=== PATIENT | male | born 1960 | race Caucasian/White ===

== ENCOUNTER 2016-10-23 10:23 | Inpatient (IN) | payer MEDICARE, OTHER ==
[2016-10-23] MEDS ORDERED: IPRATROPIUM-ALBUTEROL 3 ML NEB INHALATION PRN (13:55)
[2016-10-23] MEDS ORDERED: SODIUM CHLORIDE 0.9% 1,000 ML IV SCH (14:00)
--- NOTE | 2016-10-23 15:57 | HP ---
DATE OF ADMISSION: Patient is an extremely poor historian because of his schizophrenia. Patient was transferred from [facility]. Patient was admitted as an inpatient there. Patient is being treated for COPD exacerbation. Patient is still wheezing at this point of time. Patient was found to be hyponatremic. Etiology of which was not evaluated there and patient was given Lasix with minimal improvement of sodium from 113 to 117. Patient was transferred here. Patient is a poor historian. Does not give me much of the history. Patient states he is extremely short of breath and feels sick. Patient denied any cough. Chest x-ray there did not show any pneumonic process. Patient was on system steroids and inhalational treatments there. Patient did not have any significant improvement because of which I was asked to transfer the patient. Patient was transferred here and patient is wheezing on exam. Patient denied any cough. I do not have any basic lab data available although lab data from [place] was reviewed. His sodium is 117 presently. Apparently his BNP was elevated to 1100. I did get a chance to review his past medical records which showed ejection fraction of around 20 to 25%, although patient does not give me a great history of orthopnea or PND. REVIEW OF SYSTEMS: CONSTITUTIONAL: No fever, no malaise, no fatigue. HEENT: No recent visual problems or hearing problems. Denied any sore throat. CARDIOVASCULAR: As described in HPI. PULMONARY: As described HPI. GASTROINTESTINAL: No diarrhea, no nausea, no vomiting, no abdominal pain. Normoactive bowel sounds. NEUROLOGICAL: No headaches, no weakness, no numbness. HEMATOLOGICAL: Denies any bleeding or petechiae. GENITOURINARY: Denies any burning micturition, frequency, or urgency. MUSCULOSKELETAL/RHEUMATOLOGICAL: Denies any joint pain, swelling, or any muscle pain. ENDOCRINE: Denies any polyuria or polydipsia. The rest of the 14 point review of systems is negative. The patient's home medications are not verified, but looks like patient is on edoxaban, Invega, omeprazole, metoprolol, ipratropium, diltiazem, cetirizine, Lasix, arformoterol, ammonium lactate. Although these medications were not verified yet. Patient is morbidly obese and appears to have sleep apnea. CPAP machine is not available now. We will get ( ) to put him on CPAP at night. Past medical history is significant for atrial fibrillation, severe sleep apnea, congestive heart failure, COPD, hypertension, MRSA in the past, tonsillectomy. SOCIAL HISTORY: Anxiety, schizophrenia, former smoker. Patient used to be an alcoholic in the past. Did not drink over 6 months and patient lives in ( ) [facility]. FAMILY HISTORY: Unavailable and unable to obtain from the patient. PHYSICAL EXAMINATION: Temperature 98.8, pulse of 92, respiratory rate 20, blood pressure is 148/70, saturating at 94% on 50 liters of oxygen by nasal cannula. GENERAL: Morbidly obese. Alert and oriented x3. HEENT: Pupils are round and equally reacting to light. EOMI. No scleral icterus. No conjunctival pallor. Normocephalic, atraumatic. No pharyngeal erythema. No thyromegaly. CARDIOVASCULAR: S1 and S2 present. I am unable to appreciate any JVD because of his holguin and neck contour. Although I believe patient has S3. PULMONARY: Significant expiratory wheezing was appreciated. No crackles were appreciated. ABDOMEN: Soft, nontender, nondistended, normoactive bowel sounds. No palpable organomegaly. MUSCULOSKELETAL: No joint swelling or deformity. EXTREMITIES: Patient does have lower extremity edema 1 to 2+ pitting. No cyanosis or clubbing. NEUROLOGICAL: Gross neurological examination did not reveal any focal deficits. SKIN: No rashes. LABORATORY DATA: Unavailable from this hospital. Lab data from other hospital as discussed above. ASSESSMENT AND PLAN: 1. Acute respiratory failure mostly hypercapnic respiratory failure. Patient will be started on systemic steroids, inhalational treatments and will obtain a chest x-ray. 2. Possibility of congestive heart failure, chronic systolic dysfunction with acute exacerbation. Patient will be started on Lasix. 3. Hyponatremia. Appears to be hypervolemic hyponatremia for which we will start him on Lasix as mentioned above. 4. Nicotine dependence. 5. Atrial fibrillation presently rate controlled. Patient will be started on his Cardizem, metoprolol and Xarelto. 6. Schizophrenia. Patient is on paliperidone, which will be continued. 7. Patient has lower extremity wounds in the past, which resolved at this point.
[2016-10-23] MEDS ORDERED: HEPARIN SODIUM,PORCINE 5,000 UNIT/ML 1 ML VIAL SQ SCH (16:00)
[2016-10-23] MEDS: IPRATROPIUM-ALBUTEROL 3 ML NEB INHALATION SCH ×2 (16:03→21:03)
[2016-10-23] MEDS: AZITHROMYCIN 500 MG TAB PO SCH (16:08)
[2016-10-23] MEDS: methylPREDNISolone SOD SUCCI 125 MG/2 ML VIAL IV SCH ×2 (16:08→18:26)
--- NOTE | 2016-10-23 16:33 | XR ---
EXAMINATION TYPE: XR chest 2V DATE OF EXAM: 10/23/2016 3:58 PM COMPARISON: Prior chest x-ray 11 July 2014 HISTORY: Rule out pneumonia, abnormal chest x-ray TECHNIQUE: Frontal and lateral views of the chest are obtained. FINDINGS: There is no focal air space opacity, pleural effusion, or pneumothorax seen. Lung volumes are prominent. The cardiac silhouette size is enlarged. There are overlying cardiac leads. Intersti tium is increased. There is some improvement in the blunting the posterior costophrenic angles. The o sseous structures are intact. IMPRESSION: Findings suggest pulmonary venous hypertension and interstitial edema in a patient with pre-existing COPD. Correlate for congestive heart failure. Follow-up recommended.
[2016-10-23 16:59] LABS: Glucose,Whole Blood 120 mg/dL (75-99)
--- NOTE | 2016-10-23 17:00 | P.CRDCN ---
History of Present Illness Consult date: 10/23/16 Chief complaint: Shortness of breath History of present illness: This is a pleasant 55-year-old gentleman with a past medical history significant for cardiomyopathy with an ejection fraction of 20% based on echocardiogram was performed in June 2016, chronic atrial fibrillation, hypertension, and COPD, was brought from [facility] to [facility] for further evaluation and management. The patient is a poor historian. He lives in an extended care facility. He had some change in mental status lately and he was found to be more dyspneic. He was brought to the emergency room where he was found to be hypoxic. Currently the patient is requiring 6 L of nasal cannula to keep his oxygen above 90%. The chest x-ray showed findings consistent was congestive heart failure exacerbation. I don't have any PND on him at this point. On physical examination he had bilateral crackles associated with bilateral lower extremities edema. The patient was started on Lasix IV and we'll continue that. He is on Cardizem for heart rate control and I am going to stop that and start the patient on metoprolol. He is in A. fib with controlled heart rate. I will repeat the echocardiogram. Past Medical History Past Medical History: Atrial Fibrillation, Chest Pain / Angina, Heart Failure, COPD, Hypertension, Osteoarthritis (OA) Additional Past Medical History / Comment(s): noncompliant with medications. Schizophrenia all information gatherd from medical records from [facility] records and the patient. History of Any Multi-Drug Resistant Organisms: MRSA Date of last positivie culture/infection: 07/07/14 MDRO Source:: LT LEG Past Surgical History: Tonsillectomy Past Anesthesia/Blood Transfusion Reactions: No Reported Reaction Past Psychological History: Anxiety, Schizophrenia Smoking Status: Former smoker Past Alcohol Use History: Occasional Additional Past Alcohol Use History / Comment(s): He has used alcohol before last drink was over 6 months ago Patient is currently residing and [facility]. information given from patient. Past Drug Use History: None Reported - Past Family History Father Family Medical History: No Reported History Medications and Allergies Home Medications Medication Instructions Recorded Confirmed Type Metoprolol Succinate [Toprol XL] 100 mg PO DAILY 01/15/15 10/23/16 History Paliperidone [Invega] 9 mg PO DAILY 01/15/15 10/23/16 History Rivaroxaban [Xarelto] 20 mg PO DAILY 01/15/15 10/23/16 History Ipratropium/Albuterol Sulfate 1 puff INHALATION RT-QID 01/29/15 10/23/16 History [Combivent Respimat Inhaler] Arformoterol Tartrate [Brovana] 15 mcg INHALATION RT-BID 04/02/15 10/23/16 History Budesonide [Pulmicort] 0.5 mg INHALATION RT-BID 04/02/15 10/23/16 History Albuterol Inhaler [Ventolin Hfa 2 puff INHALATION RT-Q4H PRN 10/23/16 10/23/16 History Inhaler] Ammonium Lactate Cream [Lac-Hydrin 1 applic TOPICAL BID 10/23/16 10/23/16 History 12% Cream] Cetirizine HCl [Zyrtec] 10 mg PO DAILY 10/23/16 10/23/16 History Diltiazem HCl 60 mg PO QID 10/23/16 10/23/16 History Fluticasone Nasal [place] [Flonase 1 - 2 spray EA NOSTRIL DAILY PRN 10/23/1610/23 History Nasal [place]] Omeprazole [PriLOSEC] 40 mg PO HS 10/23/16 10/23/16 History Allergies Allergy/AdvReac Type Severity Reaction Status Date / Time benztropine mesylate Allergy Rash/Hives Verified 10/23/16 14:31 [From [facility]] peanut oil Allergy Unknown Verified 10/23/16 14:31 laundry detergent Allergy Mild Rash/Hives Uncoded 06/04/15 11:53 popcorn Allergy Mild Rash/Hives Uncoded 06/04/15 11:53 laundry soap Allergy Rash/Hives Uncoded 06/04/15 11:53 Physical Exam Vitals: Vital Signs Temp Pulse Pulse Resp BP Pulse Ox 10/23/16 16:14 90 10/23/16 16:05 88 10/23/16 13:32 98.8 F 92 20 148/78 94 L Intake and Output 10/23/16 10/23/16 10/23/16 06:59 14:59 22:59 Other: Weight 117.027 kg Patient Weight 10/24/16 06:59 Weight 117.027 kg - Constitutional General appearance: mild distress - Respiratory Respiratory: bilateral: rales - Cardiovascular Rhythm: irregularly irregular Heart sounds: normal: S1, S2 Results Current Medications Generic Name Dose Route Start Last Admin Trade Name Brandenq PRN Reason Stop Dose Admin Albuterol/Ipratropium 3 ml 10/23/16 13:55 Duoneb 0.5 Mg-3 Mg/3 Ml Soln INHALATION RT-Q4H PRN Shortness Of Breath Or Wheezing Albuterol/Ipratropium 3 ml 10/23/16 16:00 10/23/16 16:03 Duoneb 0.5 Mg-3 Mg/3 Ml Soln INHALATION 3 ml RT-QID MARJORIE Administration Azithromycin 500 mg 10/23/16 14:00 10/23/16 16:08 Zithromax PO 500 mg DAILY MARJORIE Administration Budesonide 0.5 mg 10/23/16 20:00 Pulmicort INHALATION RT-BID MARJORIE Diltiazem HCl 60 mg 10/23/16 18:00 Cardizem Oral PO QID MARJORIE Formoterol Fumarate 20 mcg 10/23/16 20:00 Perforomist INHALATION RT-BID MARJORIE Furosemide 40 mg 10/23/16 21:00 Lasix IV Q12HR MARJORIE Insulin Human Lispro 0 unit 10/23/16 17:30 Humalog SQ ACHS MARJORIE Protocol Methylprednisolone Sodium Succinate 60 mg 10/23/16 14:00 10/23/16 16:08 Solu-Medrol IV 60 mg Q6HR MARJORIE Administration Metoprolol Succinate 100 mg 10/24/16 09:00 Toprol Xl PO DAILY MARJORIE Paliperidone 9 mg 10/24/16 09:00 Invega PO DAILY MARJORIE Pantoprazole Sodium 40 mg 10/23/16 21:00 Protonix PO HS MARJORIE Rivaroxaban 20 mg 10/24/16 09:00 Xarelto PO DAILY [facility] Intake and Output 10/23/16 10/23/16 10/23/16 06:59 14:59 22:59 Other: Weight 117.027 kg Patient Weight 10/24/16 06:59 Weight 117.027 kg Assessment and Plan Plan: Assessment Congestive heart failure exacerbation secondary to systolic dysfunction Atrial fibrillation was controlled heart rate Severe cardiomyopathy COPD Obesity Plan The patient was started on Lasix IV DC the Cardizem and start the patient on metoprolol Obtain an echocardiogram was Doppler Follow-up with the patient
[2016-10-23] MEDS: INSULIN LISPRO (humaLOG) 300 UNIT/3 ML VIAL SQ SCH ×2 (17:16→22:22)
[2016-10-23] MEDS ORDERED: DILTIAZEM ORAL 60 MG TAB PO SCH (18:00)
[2016-10-23] MEDS: BUDESONIDE 0.5 MG/2 ML NEBU INHALATION SCH (21:03)
[2016-10-23] MEDS: FORMOTEROL FUMARATE 20 MCG/2 ML NEBU INHALATION SCH (21:03)
[2016-10-23 22:02] LABS: Glucose,Whole Blood 151 mg/dL (75-99)
[2016-10-23] MEDS: FUROSEMIDE 10 MG/ML 4 ML VIAL IV SCH (22:22)
[2016-10-23] MEDS: PANTOPRAZOLE 40 MG TABLET PO SCH (22:23)
[2016-10-23 23:38] LABS: Creatinine,Urine Random 40.7 mg/dL
[2016-10-24] MEDS: methylPREDNISolone SOD SUCCI 125 MG/2 ML VIAL IV SCH ×5 (03:08→23:05)
[2016-10-24 05:58] LABS: Glucose,Whole Blood 152 mg/dL (75-99)
[2016-10-24] MEDS: INSULIN LISPRO (humaLOG) 300 UNIT/3 ML VIAL SQ SCH ×4 (06:35→20:47)
[2016-10-24 06:43] LABS: Basophils % (A) 0 %; CH 28.7; Eosinophils % (A) 0 %; HCT 53.9 % (39.0-53.0); HDW 2.91; Hypochromasia Slight; Luc # (Auto) 0.28; Luc % (Auto) 2; Lymphocytes # (A) 0.3 k/uL (1.0-4.8); Lymphocytes % (A) 2 %; MCH 28.4 pg (25.0-35.0); MCHC 31.6 g/dL (31.0-37.0); MCV 90.1 fL (80.0-100.0); Mean Platelet Volume 7.7; Monocytes # (A) 1.2 k/uL (0-1.0); Monocytes % (A) 8 %; Neutrophils # (A) 13.3 k/uL (1.3-7.7); Neutrophils % (A) 88 %; RBC 5.98 m/uL (4.30-5.90); RDW 14.5 % (11.5-15.5); WBC 15.1 k/uL (3.8-10.6); WBC (Perox) 15.19
[2016-10-24 06:56] LABS: ALT 36 U/L (21-72); AST 23 U/L (17-59); Alkaline Phosphatase 86 U/L (38-126); Blood Urea Nitrogen 28 mg/dL (9-20); Calcium 8.4 mg/dL (8.4-10.2); Glucose 108 mg/dL (74-99); Non-African American GFR(MDRD) >60 (>60 ml/min/1.73 sqM); Potassium 5.3 mmol/L (3.5-5.1); Sodium 122 mmol/L (137-145); Total Bilirubin 0.7 mg/dL (0.2-1.3); Total Protein 6.6 g/dL (6.3-8.2)
[2016-10-24 07:02] LABS: Anion Gap 5 mmol/L
[2016-10-24 07:16] LABS: Carbon Dioxide 45 mmol/L (22-30); Chloride 72 mmol/L (98-107)
[2016-10-24] MEDS: AZITHROMYCIN 500 MG TAB PO SCH (08:12)
[2016-10-24] MEDS: RIVAROXABAN 10 MG TAB PO SCH (08:12)
[2016-10-24] MEDS: PALIPERIDONE 3 MG TAB.ER.24 PO SCH (08:12)
[2016-10-24] MEDS: FUROSEMIDE 10 MG/ML 4 ML VIAL IV SCH ×2 (08:12→20:46)
[2016-10-24] MEDS: METOPROLOL SUCCINATE (ER) 100 MG TAB.ER.24H PO SCH (08:12)
[2016-10-24] MEDS: FORMOTEROL FUMARATE 20 MCG/2 ML NEBU INHALATION SCH ×2 (08:13→19:31)
[2016-10-24] MEDS: BUDESONIDE 0.5 MG/2 ML NEBU INHALATION SCH ×2 (08:13→19:31)
[2016-10-24] MEDS: IPRATROPIUM-ALBUTEROL 3 ML NEB INHALATION SCH ×4 (08:13→19:31)
[2016-10-24 10:34] LABS: Hemoglobin A1C 6.1 % (4.2-6.1)
[2016-10-24 11:43] LABS: Glucose,Whole Blood 228 mg/dL (75-99)
[2016-10-24 13:06] LABS: Blood Urea Nitrogen 29 mg/dL (9-20); Calcium 8.4 mg/dL (8.4-10.2); Glucose 145 mg/dL (74-99); Non-African American GFR(MDRD) >60 (>60 ml/min/1.73 sqM); Phosphorous 4.4 mg/dL (2.5-4.5); Potassium 5.3 mmol/L (3.5-5.1); Sodium 121 mmol/L (137-145)
[2016-10-24 13:14] LABS: Anion Gap 9 mmol/L
[2016-10-24 13:16] LABS: Carbon Dioxide 41 mmol/L (22-30); Chloride 71 mmol/L (98-107)
--- NOTE | 2016-10-24 14:40 | P.PN ---
Subjective Principal diagnosis: This is a pleasant 55-year-old gentleman with a past medical history significant for cardiomyopathy with an ejection fraction of 20% based on echocardiogram was performed in June 2016, chronic atrial fibrillation, hypertension, and COPD, was brought from [facility] to [facility] for further evaluation and management.The patient is a poor historian. He lives in an extended care facility. He had some change in mental status lately and he was found to be more dyspneic. He was brought to the emergency room where he was found to be hypoxic. Currently the patient is requiring 3 L of nasal cannula to keep his oxygen above 98%. The chest x-ray showed findings consistent was congestive heart failure exacerbation. The patient was started on Lasix IV and we'll continue that. He is on Cardizem for heart rate control and I am going to stop that and start the patient on metoprolol. He is in A. fib with controlled heart rate. Echocardiogram with Doppler study remains pending. Blood pressure 136/80 with a heart rate in the 80s. Sodium today 121 , potassium 5.3, chloride 71, CO2 41, BUN 29, creatinine 0.8. Continues to be on IV Lasix, diuresing well. Objective - Vital Signs Vital signs: Vital Signs Temp 97.0 F L 10/24/16 12:00 Pulse 103 H 10/24/16 12:00 Resp 18 10/24/16 12:00 BP 136/79 10/24/16 12:00 Pulse Ox 99 10/24/16 12:00 Intake & Output 10/23/16 10/24/16 10/24/16 18:59 06:59 18:59 Intake Total 580 380 898 Output Total 1200 1500 Balance 580 -820 -602 Weight 117.027 kg 118 kg Intake: IV 380 300 0.9 @20mls/hr 130 Sodium Chloride 0.9% 1, 250 300 000 ml @ 100 mls/hr IV . Q10H MARJORIE Rx#:[id number] Intake, IV Titration 100 Amount Sodium Chloride 0.9% 1, 100 000 ml @ 100 mls/hr IV . Q10H MARJORIE Rx#:[id number] Oral 480 598 Output: Urine 1200 1500 Other: Voiding Method Urinal Urinal # Voids 2 - Exam PHYSICAL EXAMINATION: HEENT: Head is atraumatic, normocephalic. Pupils equal, round. Neck is supple. There is no elevated jugular venous pressure. HEART EXAMINATION: S1 and S2 irregularly irregular CHEST EXAMINATION: On's reveal crackles to bilateral bases. ABDOMEN: Soft, nontender. Bowel sounds are heard. No organomegaly noted. EXTREMITIES: 2+ peripheral pulses with no evidence of peripheral edema and no calf tenderness noted. NEUROLOGIC patient is awake, alert and oriented -3. . - Labs CBC & Chem 7: 10/24/16 05:57 10/24/16 12:27 Labs: Abnormal Lab Results - Last 24 Hours (Table) 10/23/16 10/23/16 10/24/16 Range/Units 16:36 21:42 05:56 WBC (3.8-10.6) k/uL RBC (4.30-5.90) m/uL Hct (39.0-53.0) % Plt Count (150-450) k/uL Neutrophils # (1.3-7.7) k/uL Lymphocytes # (1.0-4.8) k/uL Monocytes # (0-1.0) k/uL Sodium (137-145) mmol/L Potassium (3.5-5.1) mmol/L Chloride (98-107) mmol/L Carbon Dioxide (22-30) mmol/L BUN (9-20) mg/dL Glucose (74-99) mg/dL POC Glucose (mg/dL) 120 H 151 H 152 H (75-99) mg/dL Osmolality (280-301) mosm/kg 10/24/16 10/24/16 10/24/16 Range/Units 05:57 05:57 11:41 WBC 15.1 H (3.8-10.6) k/uL RBC 5.98 H (4.30-5.90) m/uL Hct 53.9 H (39.0-53.0) % Plt Count 125 L (150-450) k/uL Neutrophils # 13.3 H (1.3-7.7) k/uL Lymphocytes # 0.3 L (1.0-4.8) k/uL Monocytes # 1.2 H (0-1.0) k/uL Sodium 122 L (137-145) mmol/L Potassium 5.3 H (3.5-5.1) mmol/L Chloride 72 L* (98-107) mmol/L Carbon Dioxide 45 H* (22-30) mmol/L BUN 28 H (9-20) mg/dL Glucose 108 H (74-99) mg/dL POC Glucose (mg/dL) 228 H (75-99) mg/dL Osmolality 260 L (280-301) mosm/kg 10/24/16 Range/Units 12:27 WBC (3.8-10.6) k/uL RBC (4.30-5.90) m/uL Hct (39.0-53.0) % Plt Count (150-450) k/uL Neutrophils # (1.3-7.7) k/uL Lymphocytes # (1.0-4.8) k/uL Monocytes # (0-1.0) k/uL Sodium 121 L (137-145) mmol/L Potassium 5.3 H (3.5-5.1) mmol/L Chloride 71 L* (98-107) mmol/L Carbon Dioxide 41 H* (22-30) mmol/L BUN 29 H (9-20) mg/dL Glucose 145 H (74-99) mg/dL POC Glucose (mg/dL) (75-99) mg/dL Osmolality (280-301) mosm/kg Assessment and Plan (1) Systolic CHF, acute on chronic Status: Acute (2) Chronic a-fib Status: Acute (3) Schizo-affective schizophrenia Status: Acute (4) Chronic a-fib Status: Acute (5) High risk for readmission Status: Acute (6) Smoking Status: Acute Plan: From Cardiology's perspective, we'll recommend to continue current dose of IV Lasix. Continue Xarelto for anticoagulation. DNP note has been reviewed, I agree with a documented findings and plan of care. Patient was seen and examined.
--- NOTE | 2016-10-24 16:07 | P.PN ---
Subjective Date of service 10/24/2016. Progress note being dictated for Dr. Dumas. Interval history: This a 55-year-old gentleman admitted with acute respiratory failure, CHF, hypervolemic hyponatremia and multiple other medical issues. Diuresing well on IV Lasix with 24-hour I&O reflecting a negative fluid balance.Sodium 121, potassium 5.3. Telemetry atrial fibrillation with heart rates in the 110s to 120s,, last night up to 150s. Cardizem changed to metoprolol tartrate as per cardiology. Echo pending. Denies chest pain, palpitations or increased shortness of breath. Maintaining O2 sats of 99% on 3 L nasal cannula which can be titrated down. Objective - Vital Signs Vital signs: Vital Signs Temp 97.2 F L 10/24/16 04:00 Pulse 84 10/24/16 11:47 Resp 22 10/24/16 04:00 BP 121/73 10/24/16 04:00 Pulse Ox 94 L 10/24/16 04:00 Intake & Output 10/23/16 10/24/16 10/24/16 18:59 06:59 18:59 Intake Total 580 380 118 Output Total 1200 Balance 580 -820 118 Weight 117.027 kg 118 kg Intake: IV 380 0.9 @20mls/hr 130 Sodium Chloride 0.9% 1, 250 000 ml @ 100 mls/hr IV . Q10H MARJORIE Rx#:[id number] Intake, IV Titration 100 Amount Sodium Chloride 0.9% 1, 100 000 ml @ 100 mls/hr IV . Q10H MARJORIE Rx#:[id number] Oral 480 118 Output: Urine 1200 Other: Voiding Method Urinal # Voids 2 - Exam PHYSICAL EXAM: VITAL SIGNS: As above GENERAL: [Sitting up in bed, no acute distress] HEENT: [Pupils equal conjunctiva normal.] NECK: [Supple, no JVD] RESPIRATORY EFFORT:[Normal] LUNGS: [Diminished, basilar crackles] CARDIOVASCULAR[irregular, mildly tachycardic, no murmurs, rubs, gallops, no edema] GI: [Abdomen soft, nontender, positive bowel sounds.] PSYCH: [Alert and oriented -3, mood and affect normal.] NEURO: [No focal deficit] - Labs CBC & Chem 7: 10/24/16 05:57 10/24/16 12:27 Labs: Abnormal Lab Results - Last 24 Hours (Table) 10/23/16 10/23/16 10/24/16 Range/Units 16:36 21:42 05:56 WBC (3.8-10.6) k/uL RBC (4.30-5.90) m/uL Hct (39.0-53.0) % Plt Count (150-450) k/uL Neutrophils # (1.3-7.7) k/uL Lymphocytes # (1.0-4.8) k/uL Monocytes # (0-1.0) k/uL Sodium (137-145) mmol/L Potassium (3.5-5.1) mmol/L Chloride (98-107) mmol/L Carbon Dioxide (22-30) mmol/L BUN (9-20) mg/dL Glucose (74-99) mg/dL POC Glucose (mg/dL) 120 H 151 H 152 H (75-99) mg/dL Osmolality (280-301) mosm/kg 10/24/16 10/24/16 10/24/16 Range/Units 05:57 05:57 11:41 WBC 15.1 H (3.8-10.6) k/uL RBC 5.98 H (4.30-5.90) m/uL Hct 53.9 H (39.0-53.0) % Plt Count 125 L (150-450) k/uL Neutrophils # 13.3 H (1.3-7.7) k/uL Lymphocytes # 0.3 L (1.0-4.8) k/uL Monocytes # 1.2 H (0-1.0) k/uL Sodium 122 L (137-145) mmol/L Potassium 5.3 H (3.5-5.1) mmol/L Chloride 72 L* (98-107) mmol/L Carbon Dioxide 45 H* (22-30) mmol/L BUN 28 H (9-20) mg/dL Glucose 108 H (74-99) mg/dL POC Glucose (mg/dL) 228 H (75-99) mg/dL Osmolality 260 L (280-301) mosm/kg Assessment and Plan Plan: 1. [Acute hypercapnic respiratory failure,]. 2. [Acute CHF, systolic exacerbation. 3. [Hypovolemic hyponatremia]. 4. [Nicotine dependence]. 5. [Chronic Atrial fibrillation, anticoagulated on Xarelto]. 6. [Schizophrenia]. Plan: Continue on current medication regime , nebulized bronchodilators , monitoring and symptomatic treatment. Continue on IV Lasix, beta odalis. Anticoagulated on Xarelto. Follow closely with cardiology. Smoking cessation readdressed. Maintain fluid restrictions with diet modified to include low potassium. Close monitoring of electrolytes with repeat labs ordered. Pulmonary consult in place with recommendations pending. Prognosis guarded. The impression and plan of care has been dictated as directed. : I performed a H&P examination of this patient and discussed the same with the dictator. I agree with the dictator's note. Any additional findings/opinions/ etc. will be noted.
[2016-10-24 17:16] LABS: Glucose,Whole Blood 126 mg/dL (75-99)
[2016-10-24 20:31] LABS: Glucose,Whole Blood 178 mg/dL (75-99)
[2016-10-24] MEDS: PANTOPRAZOLE 40 MG TABLET PO SCH (20:46)
--- NOTE | 2016-10-24 20:53 | CONS ---
DATE OF CONSULTATION: This is a 55-year-old gentleman who apparently was transferred down from [facility]. He came in with COPD exacerbation and possible CHF. The patient was also found to have hyponatremia. The hyponatremia may in fact be hypervolemic hyponatremia from heart failure. His chest x-ray does show evidence of heart failure and fluid overload. In this condition, there is an increase in both water and sodium, but water increase exceeds sodium increase. Anyway, the patient was given diuretics, I believe, and is doing a bit better. He has a history of hypoxemic respiratory failure, underlying CHF with systolic dysfunction, hyponatremia, nicotine dependence, possible COPD, atrial fibrillation and schizophrenia. The patient was sleeping when I initially came into the room. He was getting oxygen therapy. He was nearly flat on his back. His head was raised just a bit. He appeared to be not in any distress. He was snoring loudly, and occasionally there was minimal air movement and probably he does have a component as well of sleep apnea syndrome. His home medications appear to be: 1. Omeprazole. 2. Invega. 3. Metoprolol. 4. Ipratropium. 5. Diltiazem. 6. Zyrtec. 7. Lasix. 8. Formoterol. 9. Ammonium lactate. 10. Possibly factor Xa inhibitor. He also appears to have a history of sleep apnea. He apparently did have a CPAP device. Medical history includes: 1. Atrial fibrillation. 2. Sleep apnea. 3. CHF. 4. COPD. 5. Hypertension. 6. Previous MRSA infection. 7. Tonsillectomy. Social history is positive for chronic alcohol abuse. He is a current smoker; has not smoked for some time. No illicit drug use. Family history is unremarkable. The rest of the history is difficult to obtain. Review of systems is unreliable at best. It appears that his primary complaint was shortness of breath and maybe some mental status changes; again, not really a good historian. No chest pain, chest discomfort. No cough. Not coughing up any phlegm. No fever. No chills. No nausea, vomiting or diarrhea. Current vital signs include temperature 97, heart rate 98, respiratory rate 16, blood pressure 136/79, mean 98. Two-liter saturation 99%. Appears in no acute distress. As I mentioned, when I first came into the room he was nearly flat on his back sleeping, snoring loudly but not in any distress. HEENT examination is grossly unremarkable. Mucous membranes are moist. NECK: Supple. Full range of motion. No neck vein distention. No adenopathy or thyromegaly. Cardiovascular examination reveals regular rhythm and rate. Heart rate near 100. It is pretty regular. S1, S2 normal. Soft systolic murmur. Lungs reveal some bibasilar crackles. No wheezes. No rhonchi. Breath sounds are equal but diminished. ABDOMEN: Soft. Bowel sounds are heard. No masses. EXTREMITIES: Intact. Some minimal edema. Some chronic venostasis changes and hyperpigmentation. Skin without rash. Neurological examination is nonfocal. Lab data includes white count 15.1, hemoglobin 17, hematocrit 53.9, platelet count 125,000. Sodium 122, potassium 5.3, chloride 72, CO2 45. BUN and creatinine were 20 and 0.75. The rest of the labs look okay. The patient's serum osmolality is low at 260. Chest x-ray reveals diffuse heart failure changes. Medications are reviewed. He is on: 1. Zithromax. 2. Pulmicort. 3. Formoterol. 4. Lasix. 5. DuoNeb. 6. Metoprolol. 7. Invega. 8. Protonix. 9. Xarelto. 10. Solu-Medrol. It really does not sound like he needs the Zithromax, but it is okay for now. Everything else seems appropriate. ASSESSMENT: 1. Shortness of breath, likely secondary to mostly heart failure but also a component of chronic obstructive pulmonary disease. 2. No obvious infection. 3. Hypervolemic hyponatremia secondary to congestive heart failure. 4. Morbid obesity. 5. History of atrial fibrillation. 6. History of sleep apnea. 7. History of hypertension. PLAN: Will continue to follow. Medications are appropriate. No changes are made.
[2016-10-25 05:48] LABS: Glucose,Whole Blood 122 mg/dL (75-99)
[2016-10-25] MEDS: INSULIN LISPRO (humaLOG) 300 UNIT/3 ML VIAL SQ SCH ×4 (06:07→20:50)
[2016-10-25] MEDS: methylPREDNISolone SOD SUCCI 125 MG/2 ML VIAL IV SCH ×3 (06:10→17:46)
[2016-10-25 06:40] LABS: CH 28.8; CHCM 31.8; HCT 54.2 % (39.0-53.0); HDW 2.76; HGB 17.1 gm/dL (13.0-17.5); Hypochromasia Slight; MCH 28.5 pg (25.0-35.0); MCHC 31.5 g/dL (31.0-37.0); MCV 90.5 fL (80.0-100.0); RBC 5.99 m/uL (4.30-5.90); RDW 14.7 % (11.5-15.5); WBC 11.3 k/uL (3.8-10.6)
[2016-10-25 07:05] LABS: Blood Urea Nitrogen 30 mg/dL (9-20); Calcium 8.1 mg/dL (8.4-10.2); Glucose 121 mg/dL (74-99); Non-African American GFR(MDRD) >60 (>60 ml/min/1.73 sqM); Potassium 4.4 mmol/L (3.5-5.1); Sodium 124 mmol/L (137-145)
[2016-10-25 07:12] LABS: Chloride 71 mmol/L (98-107)
[2016-10-25 07:14] LABS: Carbon Dioxide 48 mmol/L (22-30)
[2016-10-25 07:15] LABS: Anion Gap 5 mmol/L
[2016-10-25] MEDS: PALIPERIDONE 3 MG TAB.ER.24 PO SCH (08:38)
[2016-10-25] MEDS: FUROSEMIDE 10 MG/ML 4 ML VIAL IV SCH ×2 (08:38→20:49)
[2016-10-25] MEDS: AZITHROMYCIN 500 MG TAB PO SCH (08:38)
[2016-10-25] MEDS: METOPROLOL SUCCINATE (ER) 100 MG TAB.ER.24H PO SCH (08:38)
[2016-10-25] MEDS: RIVAROXABAN 10 MG TAB PO SCH (08:39)
[2016-10-25] MEDS: FORMOTEROL FUMARATE 20 MCG/2 ML NEBU INHALATION SCH ×2 (08:49→20:11)
[2016-10-25] MEDS: IPRATROPIUM-ALBUTEROL 3 ML NEB INHALATION SCH ×4 (08:49→20:11)
[2016-10-25] MEDS: BUDESONIDE 0.5 MG/2 ML NEBU INHALATION SCH ×2 (08:49→20:11)
[2016-10-25 12:03] LABS: Glucose,Whole Blood 126 mg/dL (75-99)
--- NOTE | 2016-10-25 13:13 | P.PN ---
Subjective Principal diagnosis: Acute exacerbation of systolic congestive heart failure This is a pleasant 55-year-old gentleman with a known history of systolic congestive heart failure, acute hypoxic respiratory failure, chronic nicotine dependence, atrial fibrillation, schizophrenia. He was admitted here on 2016 as a transfer from [facility] for an acute exacerbation of COPD as well as an acute exacerbation of congestive heart failure. He is seen again today in follow-up on the selective care unit. He is awake and alert in no acute distress. His breathing is easier today as compared to yesterday. Somewhat of a poor historian however. Echocardiogram showed significant cardiomyopathy with an ejection fraction of 20% he's been diuresed with Lasix 40 mg IV every 12 hours. He remains in a negative balance. Does continue to require 14 L of high flow nasal cannula to maintain O2 saturations in the 90s. He is currently afebrile. Objective - Vital Signs Vital signs: Vital Signs Temp 97.5 F L 10/25/16 08:00 Pulse 68 10/25/16 12:03 Resp 18 10/25/16 08:00 BP 139/75 10/25/16 08:00 Pulse Ox 99 10/25/16 08:50 Intake & Output 10/24/16 10/25/16 10/25/16 18:59 06:59 18:59 Intake Total 898 150 120 Output Total 1500 2200 1200 Balance -602 -1395 Weight 114 kg Intake: IV 300 150 0.9 @20mls/hr 150 Sodium Chloride 0.9% 1, 300 000 ml @ 100 mls/hr IV . Q10H [facility] Rx#:[id number] Oral 598 120 Output: Urine 1500 2200 1200 Other: Voiding Method Urinal Urinal - Exam GENERAL EXAM: Alert, comfortable in no apparent distress. HEAD: Normocephalic. EYES: Normal reaction of pupils, equal size. NOSE: Clear with pink turbinates. THROAT: No erythema or exudates. NECK: No masses, no JVD. CHEST: No chest wall deformity. LUNGS: Equal air entry with bilateral posterior bases. Diminished. CVS: S1 and S2 normal with an audible systolic murmur, irregular rhythm. ABDOMEN: No hepatosplenomegaly, normal bowel sounds, no guarding or rigidity. Extremities: There is 1-2+ lower extremity peripheral edema. No clubbing, no cyanosis. Peripheral pulses are intact. - Labs CBC & Chem 7: 10/25/16 05:46 10/25/16 05:46 Labs: Abnormal Lab Results - Last 24 Hours (Table) 10/24/16 10/24/16 10/24/16 Range/Units 12:27 17:07 20:29 WBC (3.8-10.6) k/uL RBC (4.30-5.90) m/uL Hct (39.0-53.0) % Plt Count (150-450) k/uL Sodium 121 L (137-145) mmol/L Potassium 5.3 H (3.5-5.1) mmol/L Chloride 71 L* (98-107) mmol/L Carbon Dioxide 41 H* (22-30) mmol/L BUN 29 H (9-20) mg/dL Glucose 145 H (74-99) mg/dL POC Glucose (mg/dL) 126 H 178 H (75-99) mg/dL Calcium (8.4-10.2) mg/dL 10/25/16 10/25/16 10/25/16 Range/Units 05:46 05:46 05:46 WBC 11.3 H (3.8-10.6) k/uL RBC 5.99 H (4.30-5.90) m/uL Hct 54.2 H (39.0-53.0) % Plt Count 111 L (150-450) k/uL Sodium 124 L (137-145) mmol/L Potassium (3.5-5.1) mmol/L Chloride 71 L* (98-107) mmol/L Carbon Dioxide 48 H* (22-30) mmol/L BUN 30 H (9-20) mg/dL Glucose 121 H (74-99) mg/dL POC Glucose (mg/dL) 122 H (75-99) mg/dL Calcium 8.1 L (8.4-10.2) mg/dL 10/25/16 Range/Units 11:46 WBC (3.8-10.6) k/uL RBC (4.30-5.90) m/uL Hct (39.0-53.0) % Plt Count (150-450) k/uL Sodium (137-145) mmol/L Potassium (3.5-5.1) mmol/L Chloride (98-107) mmol/L Carbon Dioxide (22-30) mmol/L BUN (9-20) mg/dL Glucose (74-99) mg/dL POC Glucose (mg/dL) 126 H (75-99) mg/dL Calcium (8.4-10.2) mg/dL Assessment and Plan Plan: Impression: #1 Dyspnea, multifactorial in a patient found to have acute on chronic systolic congestive heart failure and acute on chronic exacerbation of chronic obstructive pulmonary disease. No clear evidence of pneumonia. #2 Severe cardiomyopathy with estimated ejection fraction 20%. #3 Chronic atrial fibrillation. Currently coagulated with Xarelto. #4 History of obstructive sleep apnea. #5 Hypertension. Plan: The patient was seen and evaluated by Dr. Liriano. Improved today as compared to yesterday. We'll continue to titrate down his FiO2 while maintaining O2 saturations greater than 90%. We'll continue with bronchodilators, Pulmicort and Perforomist inhalations, IV Solu-Medrol. He is anticoagulated with Xarelto. He is on Protonix for GI prophylaxis. We'll continue to diurese the patient. We will continue to follow.
--- NOTE | 2016-10-25 15:50 | P.PN ---
Subjective Date of service 10/25/2016. Progress note being dictated for Dr. Shahram Guajardo history: This a 55-year-old gentleman admitted with acute respiratory failure, CHF, hypervolemic hyponatremia and multiple other medical issues. Diuresing well on IV Lasix with 24-hour I&O reflecting a negative fluid balance.Breathing slowly improving but still requiring 14 L high flow nasal cannula, maintaining O2 sats in the 90s .Lytes slowly improving;Sodium 124, potassium 4.4. Telemetry atrial fibrillation with heart rates in the 110s to 150s. Echo reporting EF 20%, cardiomyopathy. Poor historian. Review of systems: HEENT: Denies headache or focal deficits. Denies any dizziness or lightheadedness. Respiratory: shortness of breath. Cardiac: Denies any chest pain, palpitations. GI: Denies any nausea, vomiting, or diarrhea. Denies any abdominal tenderness. : Denies any dysuria. Psychiatry: Denies any anxiety or depression. Active Medications Albuterol/Ipratropium (Duoneb 0.5 Mg-3 Mg/3 Ml Soln) 3 ml INHALATION RT-Q4H PRN PRN Reason: Shortness Of Breath Or Wheezing Albuterol/Ipratropium (Duoneb 0.5 Mg-3 Mg/3 Ml Soln) 3 ml INHALATION RT-QID [facility] Last Admin: 10/25/16 15:27 Dose: 3 ml Azithromycin (Zithromax) 500 mg PO DAILY [facility] Last Admin: 10/25/16 08:38 Dose: 500 mg Budesonide (Pulmicort) 0.5 mg INHALATION RT-BID [facility] Last Admin: 10/25/16 08:49 Dose: 0.5 mg Formoterol Fumarate (Perforomist) 20 mcg INHALATION RT-BID [facility] Last Admin: 10/25/16 08:49 Dose: 20 mcg Furosemide (Lasix) 40 mg IV Q12HR [facility] Last Admin: 10/25/16 08:38 Dose: 40 mg Insulin Human Lispro (Humalog) 0 unit SQ ACHS [facility] PRN Reason: Protocol Last Admin: 10/25/16 12:11 Dose: Not Given Methylprednisolone Sodium Succinate (Solu-Medrol) 60 mg IV Q6HR [facility] Last Admin: 10/25/16 12:32 Dose: 60 mg Metoprolol Succinate (Toprol Xl) 100 mg PO DAILY [facility] Last Admin: 10/25/16 08:38 Dose: 100 mg Paliperidone (Invega) 9 mg PO DAILY [facility] Last Admin: 10/25/16 08:38 Dose: 9 mg Pantoprazole Sodium (Protonix) 40 mg PO HS [facility] Last Admin: 10/24/16 20:46 Dose: 40 mg Rivaroxaban (Xarelto) 20 mg PO DAILY [facility] Last Admin: 10/25/16 08:39 Dose: 20 mg Objective - Vital Signs Vital signs: Vital Signs Temp 98.1 F 10/25/16 12:00 Pulse 68 10/25/16 12:03 Resp 18 10/25/16 12:00 BP 118/80 10/25/16 12:00 Pulse Ox 94 L 10/25/16 12:00 Intake & Output 10/24/16 10/25/16 10/25/16 18:59 06:59 18:59 Intake Total 898 150 120 Output Total 1500 2200 1200 Balance -602 -7306 -1080 Weight 114 kg Intake: IV 300 150 0.9 @20mls/hr 150 Sodium Chloride 0.9% 1, 300 000 ml @ 100 mls/hr IV . Q10H [facility] Rx#:[id number] Oral 598 120 Output: Urine 1500 2200 1200 Other: Voiding Method Urinal Urinal - Exam PHYSICAL EXAM: VITAL SIGNS: As above GENERAL: [Sitting up in bed, no acute distress] HEENT: [Pupils equal conjunctiva normal. No conjunctival pallor.] NECK: [Supple, no JVD] RESPIRATORY EFFORT:[Normal] LUNGS: [Diminished, throughout no wheezes, occasional rhonchi] CARDIOVASCULAR[irregular, mildly tachycardic, positive systolic murmurs, rubs, gallops, positive edema] GI: [Abdomen soft, nontender, positive bowel sounds. No guarding, no rigidity] PSYCH: [Alert and oriented -3, mood and affect normal.] NEURO: [No focal deficit] - Labs CBC & Chem 7: 10/25/16 05:46 10/25/16 05:46 Labs: Abnormal Lab Results - Last 24 Hours (Table) 10/24/16 10/24/16 10/25/16 Range/Units 17:07 20:29 05:46 WBC 11.3 H (3.8-10.6) k/uL RBC 5.99 H (4.30-5.90) m/uL Hct 54.2 H (39.0-53.0) % Plt Count 111 L (150-450) k/uL Sodium (137-145) mmol/L Chloride (98-107) mmol/L Carbon Dioxide (22-30) mmol/L BUN (9-20) mg/dL Glucose (74-99) mg/dL POC Glucose (mg/dL) 126 H 178 H (75-99) mg/dL Calcium (8.4-10.2) mg/dL 10/25/16 10/25/16 10/25/16 Range/Units 05:46 05:46 11:46 WBC (3.8-10.6) k/uL RBC (4.30-5.90) m/uL Hct (39.0-53.0) % Plt Count (150-450) k/uL Sodium 124 L (137-145) mmol/L Chloride 71 L* (98-107) mmol/L Carbon Dioxide 48 H* (22-30) mmol/L BUN 30 H (9-20) mg/dL Glucose 121 H (74-99) mg/dL POC Glucose (mg/dL) 122 H 126 H (75-99) mg/dL Calcium 8.1 L (8.4-10.2) mg/dL Assessment and Plan Plan: 1. [Acute hypercapnic respiratory failure,]. 2. [Acute on chronic CHF, systolic exacerbation. 3. Severe cardiomyopathy, EF 20% 4. [Nicotine dependence]. 5. [Chronic Atrial fibrillation, anticoagulated on Xarelto]. 6. [Schizophrenia]. 7. Hypervolemic hyponatremia 8. Hypertension 9. Obstructive sleep apnea my history of Plan: Continue on current medication regime , nebulized bronchodilators , steroids, beta odalis monitoring and symptomatic treatment. Continue diuresing with IV Lasix. Anticoagulated on Xarelto. GI and DVT prophylaxis in place Smoking cessation readdressed. Maintain fluid restrictions. Close monitoring of electrolytes with repeat labs ordered. Pulmonary consult in place with recommendations pending. Prognosis guarded. The impression and plan of care has been dictated as directed. : I performed a H&P examination of this patient and discussed the same with the dictator. I agree with the dictator's note. Any additional findings/opinions/ etc. will be noted.
--- NOTE | 2016-10-25 15:56 | P.PN ---
Subjective Principal diagnosis: CHF This is a pleasant 55-year-old gentleman with a past medical history significant for cardiomyopathy with an ejection fraction of 20% based on echocardiogram was performed in June 2016, chronic atrial fibrillation, hypertension, and COPD, was brought from [facility] for further evaluation and management.The patient is a poor historian. He lives in an extended care facility. He had some change in mental status lately and he was found to be more dyspneic. He was brought to the emergency room where he was found to be hypoxic. Currently the patient is requiring 3 L of nasal cannula to keep his oxygen above 98%. The chest x-ray showed findings consistent was congestive heart failure exacerbation. Continues to be on IV Lasix. Weight is down 4 kg today. Sodium 124, potassium 4.4, BUN 30, creatinine 0.8. TSH level 0.696. Currently afebrile. Objective - Vital Signs Vital signs: Vital Signs Temp 98.1 F 10/25/16 12:00 Pulse 68 10/25/16 15:39 Resp 18 10/25/16 12:00 BP 118/80 10/25/16 12:00 Pulse Ox 94 L 10/25/16 12:00 Intake & Output 10/24/16 10/25/16 10/25/16 18:59 06:59 18:59 Intake Total 898 150 120 Output Total 1500 2200 1200 Balance -602 -0 -1080 Weight 114 kg Intake: IV 300 150 0.9 @20mls/hr 150 Sodium Chloride 0.9% 1, 300 000 ml @ 100 mls/hr IV . Q10H [facility] Rx#:[id number] Oral 598 120 Output: Urine 1500 2200 1200 Other: Voiding Method Urinal Urinal - Exam PHYSICAL EXAMINATION: HEENT: Head is atraumatic, normocephalic. Pupils equal, round. Neck is supple. There is no elevated jugular venous pressure. HEART EXAMINATION: S1 and S2 irregularly irregular systolic murmur is heard. CHEST EXAMINATION: On's reveal crackles to bilateral bases. ABDOMEN: Soft, nontender. Bowel sounds are heard. No organomegaly noted. EXTREMITIES: 2+ peripheral pulses with 1+ evidence of peripheral edema and no calf tenderness noted. NEUROLOGIC patient is awake, alert and oriented -3. . - Labs CBC & Chem 7: 10/25/16 05:46 10/25/16 05:46 Labs: Abnormal Lab Results - Last 24 Hours (Table) 10/24/16 10/24/16 10/25/16 Range/Units 17:07 20:29 05:46 WBC 11.3 H (3.8-10.6) k/uL RBC 5.99 H (4.30-5.90) m/uL Hct 54.2 H (39.0-53.0) % Plt Count 111 L (150-450) k/uL Sodium (137-145) mmol/L Chloride (98-107) mmol/L Carbon Dioxide (22-30) mmol/L BUN (9-20) mg/dL Glucose (74-99) mg/dL POC Glucose (mg/dL) 126 H 178 H (75-99) mg/dL Calcium (8.4-10.2) mg/dL 10/25/16 10/25/16 10/25/16 Range/Units 05:46 05:46 11:46 WBC (3.8-10.6) k/uL RBC (4.30-5.90) m/uL Hct (39.0-53.0) % Plt Count (150-450) k/uL Sodium 124 L (137-145) mmol/L Chloride 71 L* (98-107) mmol/L Carbon Dioxide 48 H* (22-30) mmol/L BUN 30 H (9-20) mg/dL Glucose 121 H (74-99) mg/dL POC Glucose (mg/dL) 122 H 126 H (75-99) mg/dL Calcium 8.1 L (8.4-10.2) mg/dL Assessment and Plan (1) Systolic CHF, acute on chronic Status: Acute (2) Chronic a-fib Status: Acute (3) Schizo-affective schizophrenia Status: Acute (4) Chronic a-fib Status: Acute (5) High risk for readmission Status: Acute (6) Smoking Status: Acute Plan: From Cardiology's perspective, we'll recommend to continue current dose of IV Lasix. Continue Xarelto for anticoagulation. DNP note has been reviewed, I agree with a documented findings and plan of care. Patient was seen and examined.
[2016-10-25] MEDS ORDERED: FLUTICASONE 50MCG/SPRAY NASAL 16GM EA NOSTRIL PRN (16:58)
[2016-10-25 17:11] LABS: Glucose,Whole Blood 123 mg/dL (75-99)
[2016-10-25] MEDS ORDERED: ARFORMOTEROL TARTRATE 15 MCG INHALATION SCH (20:00)
[2016-10-25] MEDS: PANTOPRAZOLE 40 MG TABLET PO SCH (20:50)
[2016-10-25] MEDS: AMMONIUM LACTATE 12% CREAM 140 GM TUBE TOPICAL SCH (21:03)
[2016-10-25 21:10] LABS: Glucose,Whole Blood 146 mg/dL (75-99)
--- NOTE | 2016-10-25 22:22 | PN ---
DATE OF SERVICE: 10/25/2016 This 55-year-old gentleman was admitted with acute hypercarbic respiratory failure, also had CHF acute exacerbation. I have seen and evaluated the patient with the nurse practitioner. Please refer to the nurse practitioner's notes and impressions documented as scribe for further information. The creatinine is being closely monitored at this time and the patient is on IV Lasix 40 mg b.i.d.. Prognosis guarded. Continue with current medications Will initiate the home medications, also. Further recommendations to follow.
[2016-10-26] MEDS: methylPREDNISolone SOD SUCCI 125 MG/2 ML VIAL IV SCH ×3 (00:03→12:20)
[2016-10-26 06:33] LABS: Glucose,Whole Blood 166 mg/dL (75-99)
[2016-10-26] MEDS: INSULIN LISPRO (humaLOG) 300 UNIT/3 ML VIAL SQ SCH ×4 (06:47→21:51)
[2016-10-26] MEDS: BUDESONIDE 0.5 MG/2 ML NEBU INHALATION SCH (07:42)
[2016-10-26] MEDS: FORMOTEROL FUMARATE 20 MCG/2 ML NEBU INHALATION SCH (07:42)
[2016-10-26] MEDS: IPRATROPIUM-ALBUTEROL 3 ML NEB INHALATION SCH ×4 (07:42→20:50)
[2016-10-26] MEDS: FUROSEMIDE 10 MG/ML 4 ML VIAL IV SCH ×2 (09:36→21:51)
[2016-10-26] MEDS: METOPROLOL SUCCINATE (ER) 100 MG TAB.ER.24H PO SCH (09:37)
[2016-10-26] MEDS: PALIPERIDONE 3 MG TAB.ER.24 PO SCH (09:37)
[2016-10-26] MEDS: AZITHROMYCIN 500 MG TAB PO SCH (09:37)
[2016-10-26] MEDS: RIVAROXABAN 10 MG TAB PO SCH (09:37)
[2016-10-26] MEDS: LORATADINE 10 MG TAB PO SCH (09:37)
[2016-10-26] MEDS: AMMONIUM LACTATE 12% CREAM 140 GM TUBE TOPICAL SCH ×2 (09:38→21:51)
[2016-10-26 11:41] LABS: Glucose,Whole Blood 112 mg/dL (75-99)
--- NOTE | 2016-10-26 13:51 | P.PN ---
Subjective Date of service 10/26/2016. Progress note being dictated for Dr. Omalley Interval history: This a 55-year-old gentleman admitted with acute respiratory failure, CHF, hypervolemic hyponatremia and multiple other medical issues. Diuresing well on IV Lasix with 24-hour I&O reflecting a negative fluid balance and decreasing weight.Breathing improving , oxygen titrated down to 6 L nasal cannula, maintaining O2 sats of 91%. Telemetry reporting atrial fibrillation, heart rates ranging from low 100s to 120s, briefly jumps up to 170s with exertion. Poor historian. Review of systems: HEENT: Denies headache or focal deficits. Denies any dizziness or lightheadedness. Respiratory: shortness of breath. Cardiac: Denies any chest pain, palpitations. GI: Denies any nausea, vomiting, or diarrhea. Denies any abdominal tenderness. : Denies any dysuria. Psychiatry: Denies any anxiety or depression. Active Medications Generic Name Dose Route Start Last Admin Trade Name Freq PRN Reason Stop Dose Admin Albuterol/Ipratropium 3 ml 10/23/16 13:55 Duoneb 0.5 Mg-3 Mg/3 Ml Soln INHALATION RT-Q4H PRN Shortness Of Breath Or Wheezing Albuterol/Ipratropium 3 ml 10/23/16 16:00 10/26/16 11:23 Duoneb 0.5 Mg-3 Mg/3 Ml Soln INHALATION 3 ml RT-QID [facility] Administration Azithromycin 500 mg 10/23/16 14:00 10/26/16 09:37 Zithromax PO 500 mg DAILY [facility] Administration Budesonide 0.5 mg 10/23/16 20:00 10/26/16 07:42 Pulmicort INHALATION 0.5 mg RT-BID [facility] Administration Fluticasone Propionate 1 - 2 spray 10/25/16 16:58 Flonase Nasal [place] EA NOSTRIL DAILY PRN Allergy Symptoms Formoterol Fumarate 20 mcg 10/23/16 20:00 10/26/16 07:42 Perforomist INHALATION 20 mcg RT-BID [facility] Administration Furosemide 40 mg 10/23/16 21:00 10/26/16 09:36 Lasix IV 40 mg Q12HR [facility] Administration Insulin Human Lispro 0 unit 10/23/16 17:30 10/26/16 11:45 Humalog SQ Not Given ACHS [facility] Protocol Lactic Acid 1 applic 10/25/16 21:00 10/26/16 09:38 Ammonium Lactate TOPICAL Not Given BID [facility] Loratadine 10 mg 10/26/16 09:00 10/26/16 09:37 Claritin PO 10 mg DAILY [facility] Administration Methylprednisolone Sodium Succinate 60 mg 10/23/16 14:00 10/26/16 12:20 Solu-Medrol IV 60 mg Q6HR [facility] Administration Metoprolol Tartrate 50 mg 10/26/16 12:45 Lopressor PO TID [facility] Paliperidone 9 mg 10/24/16 09:00 10/26/16 09:37 Invega PO 9 mg DAILY [facility] Administration Pantoprazole Sodium 40 mg 10/23/16 21:00 10/25/16 20:50 Protonix PO 40 mg HS [facility] Administration Rivaroxaban 20 mg 10/24/16 09:00 10/26/16 09:37 Xarelto PO 20 mg DAILY [facility] Administration Objective - Vital Signs Vital signs: Vital Signs Temp 97.7 F 10/26/16 12:00 Pulse 116 H 10/26/16 12:00 Resp 18 10/26/16 12:00 BP 121/74 10/26/16 12:00 Pulse Ox 91 L 10/26/16 12:00 Intake & Output 10/25/16 10/26/16 10/26/16 18:59 06:59 18:59 Intake Total 760 260 600 Output Total 3000 1600 Balance -2240 -1340 600 Weight 112.5 kg Intake: IV 280 260 0.9 @20mls/hr 280 260 Oral 480 600 Output: Urine 3000 1600 Other: Voiding Method Urinal # Voids 2 1 - Exam PHYSICAL EXAM: VITAL SIGNS: As above GENERAL: [Sitting up in bed, no acute distress] HEENT: [Pupils equal conjunctiva normal. No conjunctival pallor.] NECK: [Supple, no JVD] RESPIRATORY EFFORT:[Normal] LUNGS: [Diminished, throughout no wheezes, occasional scattered rhonchi] CARDIOVASCULAR[irregular, mildly tachycardic, positive systolic murmurs, rubs, gallops, positive edema] GI: [Abdomen soft, nontender, positive bowel sounds. No guarding, no rigidity] PSYCH: [Alert and oriented -3, mood and affect normal.] NEURO: [No focal deficit] - Labs CBC & Chem 7: 10/25/16 05:46 05/09/17 05:46 Labs: Abnormal Lab Results - Last 24 Hours (Table) 10/25/16 10/25/16 10/26/16 Range/Units 16:49 20:50 06:26 POC Glucose (mg/dL) 123 H 146 H 166 H (75-99) mg/dL 10/26/16 Range/Units 11:39 POC Glucose (mg/dL) 112 H (75-99) mg/dL Assessment and Plan Plan: 1. [Acute hypercapnic respiratory failure,]. 2. [Acute on chronic CHF, systolic exacerbation, EF 20%. 3. Severe cardiomyopathy, EF 20% 4. [Nicotine dependence]. 5. [Chronic Atrial fibrillation, anticoagulated on Xarelto]. 6. [Schizophrenia]. 7. Hypervolemic hyponatremia 8. Hypertension 9. Obstructive sleep apnea my history of Plan: Continue on current medication regime , nebulized bronchodilators , steroids, beta odalis monitoring and symptomatic treatment. Fluid restrictions as ordered. Continue diuresing with IV Lasix. GI and DVT prophylaxis in place. Smoking cessation readdressed. Close monitoring of electrolytes with repeat labs ordered for am. Prognosis guarded. The impression and plan of care has been dictated as directed. : I performed a H&P examination of this patient and discussed the same with the dictator. I agree with the dictator's note. Any additional findings/opinions/ etc. will be noted.
[2016-10-26] MEDS: METOPROLOL TARTRATE 50 MG TAB PO SCH ×3 (14:39→21:51)
[2016-10-26 15:34] LABS: Potassium 3.6 mmol/L (3.5-5.1)
--- NOTE | 2016-10-26 15:42 | ECHOF ---
Referral Reason:chf MEASUREMENTS -------- HEIGHT: 172.7 cm WEIGHT: 117.9 kg BP: 121/73 RVIDd: 3.6 cm (< 3.3) IVSd: 1.3 cm (0.6 - 1.1) LVIDd: 4.8 cm (3.9 - 5.3) LVPWd: 1.2 cm (0.6 - 1.1) IVSs: 1.5 cm LVIDs: 3.7 cm LVPWs: 1.6 cm LAESV Index (A-L): 24.01 ml/m Ao Diam: 3.3 cm (2.0 - 3.7) AV Cusp: 2.2 cm (1.5 - 2.6) LA Diam: 4.7 cm (2.7 - 3.8) MV EXCURSION: 22.126 mm (> 18.000) MV EF SLOPE: 135 mm/s (70 - 150) EPSS: 0.6 cm MV E Rah: 0.90 m/s MV DecT: 140 ms MV A Rah: 0.95 m/s MV E/A Ratio: 0.95 RAP: 5.00 mmHg RVSP: 10.02 mmHg FINDINGS -------- Resting tachycardia (HR>100bpm). This was a technically difficult study with suboptimal views. There is mild concentric left ventricular hypertrophy. Overall left ventricular systolic function is normal with, an EF between 60 - 65 %. The right ventricle is normal in size and function. Normal LA size by volume 22+/-6 ml/m2. The right atrium is normal in size. 1.5MG OF DEFINITY UTLIZED: 2 OR MORE WALL SEGMENTS NOT VISUALIZED. Aortic valve is trileaflet and is mildly thickened. The mitral valve leaflets are mildly thickened. There is trace mitral regurgitation. The tricuspid valve was not well visualized. No regurgitation noted The right ventricular systolic pressure, as measured by Doppler, is 10.02mmHg. The pulmonic valve is normal. The aortic root size is normal. There is no pericardial effusion. CONCLUSIONS -------- 1. Resting tachycardia (HR>100bpm). 2. No regurgitation noted 3. The right ventricular systolic pressure, as measured by Doppler, is 10.02mmHg. 4. The aortic root size is normal. 5. There is no pericardial effusion. 6. This was a technically difficult study with suboptimal views. 7. There is mild concentric left ventricular hypertrophy. 8. Overall left ventricular systolic function is normal with, an EF between 60 - 65 %. 9. 1.5MG OF DEFINITY UTLIZED: 2 OR MORE WALL SEGMENTS NOT VISUALIZED. 10. Aortic valve is trileaflet and is mildly thickened. 11. The mitral valve leaflets are mildly thickened. 12. There is trace mitral regurgitation. 13. The tricuspid valve was not well visualized. AUTOMOTIVE REFINISH TECHNICIAN: Faby Berry RDCS
--- NOTE | 2016-10-26 15:45 | P.PN ---
Subjective Principal diagnosis: CHF This is a pleasant 55-year-old gentleman with a past medical history significant for cardiomyopathy with an ejection fraction of 20% based on echocardiogram was performed in June 2016, chronic atrial fibrillation, hypertension, and COPD, was brought from [facility] to [facility] for further evaluation and management.The patient is a poor historian. He lives in an extended care facility. He had some change in mental status lately and he was found to be more dyspneic. He was brought to the emergency room where he was found to be hypoxic. Currently the patient is requiring 6 L of nasal cannula to keep his oxygen above 91%. . Continues to be on IV Lasix. Weight is down 4 kg today. Sodium 129, potassium 3.6, Currently afebrile. Objective - Vital Signs Vital signs: Vital Signs Temp 97.7 F 10/26/16 12:00 Pulse 116 H 10/26/16 12:00 Resp 18 10/26/16 12:00 BP 121/74 10/26/16 12:00 Pulse Ox 91 L 10/26/16 12:00 Intake & Output 10/25/16 10/26/16 10/26/16 18:59 06:59 18:59 Intake Total 760 260 840 Output Total 3000 1600 Balance -2240 -1340 840 Weight 112.5 kg Intake: IV 280 260 160 0.9 @20mls/hr 280 260 160 Oral 480 680 Output: Urine 3000 1600 Other: Voiding Method Urinal # Voids 2 1 # Bowel Movements 0 - Exam PHYSICAL EXAMINATION: HEENT: Head is atraumatic, normocephalic. Pupils equal, round. Neck is supple. There is no elevated jugular venous pressure. HEART EXAMINATION: S1 and S2 irregularly irregular systolic murmur is heard. CHEST EXAMINATION: On's reveal crackles to bilateral bases. ABDOMEN: Soft, nontender. Bowel sounds are heard. No organomegaly noted. EXTREMITIES: 2+ peripheral pulses with 1+ evidence of peripheral edema and no calf tenderness noted. NEUROLOGIC patient is awake, alert and oriented -3. . - Labs CBC & Chem 7: 10/25/16 05:46 10/26/16 14:35 Labs: Abnormal Lab Results - Last 24 Hours (Table) 10/25/16 10/25/16 10/26/16 Range/Units 16:49 20:50 06:26 Sodium (137-145) mmol/L Chloride (98-107) mmol/L Carbon Dioxide (22-30) mmol/L BUN (9-20) mg/dL POC Glucose (mg/dL) 123 H 146 H 166 H (75-99) mg/dL 10/26/16 10/26/16 Range/Units 11:39 14:35 Sodium 129 L (137-145) mmol/L Chloride 70 L* (98-107) mmol/L Carbon Dioxide 50 H* (22-30) mmol/L BUN 37 H (9-20) mg/dL POC Glucose (mg/dL) 112 H (75-99) mg/dL Assessment and Plan (1) Systolic CHF, acute on chronic Status: Acute (2) Chronic a-fib Status: Acute (3) Schizo-affective schizophrenia Status: Acute (4) Chronic a-fib Status: Acute (5) High risk for readmission Status: Acute (6) Smoking Status: Acute Plan: From Cardiology's perspective, we'll recommend to continue current dose of IV Lasix. Continue Xarelto for anticoagulation. DNP note has been reviewed, I agree with a documented findings and plan of care. Patient was seen and examined.
[2016-10-26 16:52] LABS: Glucose,Whole Blood 116 mg/dL (75-99)
--- NOTE | 2016-10-26 17:09 | XR ---
EXAMINATION TYPE: XR chest 1V portable DATE OF EXAM: 10/26/2016 4:59 PM COMPARISON: 10/23/2016 HISTORY: Heart failure TECHNIQUE: Single frontal view of the chest is obtained. FINDINGS: Heart and mediastinum appear normal. Lungs are clear of infiltrate. There is no definite p leural effusion. There are chest leads. IMPRESSION: No active cardiopulmonary disease. There is clearing of mild pulmonary congestion compar ed to last exam.
--- NOTE | 2016-10-26 17:50 | PN ---
This is a 55-year-old gentleman who came into the hospital with complaints of shortness of breath. His shortness of breath was related to underlying chronic systolic heart failure as well as COPD exacerbation. No clear evidence of pneumonia. He is doing much better. He also suffers from severe cardiomyopathy with a very poor ejection fraction of 20%, chronic atrial fibrillation, history of sleep apnea syndrome and hypertension. He is doing much better. He is resting comfortably in his bed. Still on oxygen with 6 liters high flow. He does look improved. Current vital signs include temperature 97.7, heart rate 81, respiratory rate 18, blood pressure 121/74, mean 89, saturations in low 90s on 6 L high flow. Appears in no acute distress. No respiratory distress. No audible wheezing. HEENT examination is grossly unremarkable. Mucous membranes are moist. Nasal oxygen in place. No oral lesions. NECK: Supple. Full range of motion. No adenopathy or thyromegaly. Neck veins are flat. Cardiovascular examination reveals distant heart sounds. S1, S2 normal. No S3, S4. There is a soft systolic murmur. Lungs reveal mostly diminished breath sounds. A few scattered rhonchi. No wheezes or crackles. ABDOMEN: Soft. Bowel sounds are heard. EXTREMITIES: Intact. There is some evidence of mild edema. There are some chronic venostasis changes as well. Skin is without rash. Neurological examination is nonfocal. No recent x-ray to report. Labs are reviewed. No recent labs to report. ASSESSMENT: 1. Shortness of breath, multifactorial, in part related to underlying chronic systolic congestive heart failure as well as underlying chronic obstructive pulmonary disease with chronic obstructive pulmonary disease exacerbation. 2. No clear evidence of pneumonia. 3. Severe cardiomyopathy with an ejection fraction of 20%. 4. History of chronic atrial fibrillation. 5. History of sleep apnea syndrome. 6. Hyperlipidemia. 7. Cor pulmonale. 8. Chronic venostasis of the lower extremities. PLAN: Medications are reviewed. Will continue to follow. Prognosis is guarded. No additional recommendations are made.
--- NOTE | 2016-10-26 19:11 | PN ---
DATE OF SERVICE: 10/26/2016 This 55-year-old gentleman who was admitted with acute hypoxic respiratory failure secondary to congestive heart failure acute exacerbation is being closely monitored. The patient clinically is improving significantly. Seen and evaluated the patient along with the nurse practitioner. Please refer to the nurse practitioner notes and impression documented as scribe for further information. I would recommend a repeat chest x-ray to evaluate the fluid status. Prognosis guarded because of multiple complex medical issues. Further recommendations to follow.
[2016-10-26 20:36] LABS: Glucose,Whole Blood 195 mg/dL (75-99)
[2016-10-26] MEDS: SYMBICORT 160-4.5 MCG INHALER INHALATION SCH (20:50)
[2016-10-26] MEDS: PANTOPRAZOLE 40 MG TABLET PO SCH (21:51)
[2016-10-27 06:26] LABS: Glucose,Whole Blood 118 mg/dL (75-99)
[2016-10-27 06:37] LABS: Blood Urea Nitrogen 46 mg/dL (9-20); Calcium 8.3 mg/dL (8.4-10.2); Glucose 124 mg/dL (74-99); Non-African American GFR(MDRD) >60 (>60 ml/min/1.73 sqM); Potassium 3.7 mmol/L (3.5-5.1); Sodium 129 mmol/L (137-145)
[2016-10-27 06:43] LABS: Anion Gap 6 mmol/L
[2016-10-27 06:46] LABS: Chloride 73 mmol/L (98-107)
[2016-10-27 06:47] LABS: Carbon Dioxide 50 mmol/L (22-30)
[2016-10-27] MEDS: INSULIN LISPRO (humaLOG) 300 UNIT/3 ML VIAL SQ SCH ×4 (06:47→21:49)
[2016-10-27 06:53] LABS: Basophils % (A) 0 %; CH 28.9; CHCM 32.5; Eosinophils # (A) 0.1 k/uL (0-0.7); Eosinophils % (A) 1 %; HCT 54.5 % (39.0-53.0); HDW 2.78; HGB 17.8 gm/dL (13.0-17.5); Hypochromasia Slight; Luc # (Auto) 0.34; Luc % (Auto) 2; Lymphocytes # (A) 0.6 k/uL (1.0-4.8); Lymphocytes % (A) 4 %; MCH 29.2 pg (25.0-35.0); MCHC 32.7 g/dL (31.0-37.0); MCV 89.2 fL (80.0-100.0); Mean Platelet Volume 7.4; Monocytes # (A) 1.2 k/uL (0-1.0); Monocytes % (A) 7 %; Neutrophils # (A) 14.4 k/uL (1.3-7.7); Neutrophils % (A) 87 %; RBC 6.11 m/uL (4.30-5.90); RDW 14.6 % (11.5-15.5); WBC 16.7 k/uL (3.8-10.6); WBC (Perox) 15.83
[2016-10-27] MEDS: IPRATROPIUM-ALBUTEROL 3 ML NEB INHALATION SCH ×4 (08:12→21:22)
[2016-10-27] MEDS: SYMBICORT 160-4.5 MCG INHALER INHALATION SCH ×2 (08:13→21:21)
[2016-10-27] MEDS: RIVAROXABAN 10 MG TAB PO SCH (08:30)
[2016-10-27] MEDS: PALIPERIDONE 3 MG TAB.ER.24 PO SCH (08:31)
[2016-10-27] MEDS: predniSONE 10 MG TAB PO SCH (08:31)
[2016-10-27] MEDS: AZITHROMYCIN 500 MG TAB PO SCH (08:32)
[2016-10-27] MEDS: LORATADINE 10 MG TAB PO SCH (08:32)
[2016-10-27] MEDS: FUROSEMIDE 10 MG/ML 4 ML VIAL IV SCH (08:32)
[2016-10-27] MEDS: METOPROLOL TARTRATE 50 MG TAB PO SCH ×3 (08:32→21:57)
[2016-10-27] MEDS: AMMONIUM LACTATE 12% CREAM 140 GM TUBE TOPICAL SCH ×2 (08:32→21:57)
[2016-10-27] MEDS: acetaZOLAMIDE 250 MG TAB PO SCH (11:56)
[2016-10-27 11:58] LABS: Glucose,Whole Blood 180 mg/dL (75-99)
--- NOTE | 2016-10-27 14:24 | P.PN ---
Subjective Principal diagnosis: Acute exacerbation of systolic congestive heart failure This is a pleasant 55-year-old gentleman with a known history of systolic congestive heart failure, acute hypoxic respiratory failure, chronic nicotine dependence, atrial fibrillation, schizophrenia. He was admitted here on 2016 as a transfer from [facility] for an acute exacerbation of COPD as well as an acute exacerbation of congestive heart failure. He is seen again today in follow-up on the selective care unit. He is awake and alert in no acute distress. His breathing is easier today as compared to yesterday. Somewhat of a poor historian however. Echocardiogram showed significant cardiomyopathy with an ejection fraction of 20% he's been diuresed with Lasix 40 mg IV every 12 hours. He remains in a negative balance. Does continue to require 14 L of high flow nasal cannula to maintain O2 saturations in the 90s. He is currently afebrile. She is seen again today 10/27/2016 in follow-up on the selective care unit. He is awake and alert in no acute distress. Continues to require 6 L of nasal cannula to maintain O2 saturations in the low 90s. He has been afebrile. Denies any worsening shortness of breath today. He continues with a loose nonproductive cough. Objective - Vital Signs Vital signs: Vital Signs Temp 97.8 F 10/27/16 11:31 Pulse 108 H 10/27/16 13:37 Resp 18 10/27/16 11:31 BP 122/75 10/27/16 11:31 Pulse Ox 90 L 10/27/16 11:31 Intake & Output 10/26/16 10/27/16 10/27/16 18:59 06:59 18:59 Intake Total 960 320 120 Output Total 1050 Balance 960 -730 120 Weight 110.8 kg Intake: IV 160 320 0.9 @20mls/hr 160 320 Oral 800 120 Output: Urine 1050 Other: Voiding Method Urinal Urinal # Bowel Movements 0 - Exam GENERAL EXAM: Alert, comfortable in no apparent distress. HEAD: Normocephalic. EYES: Normal reaction of pupils, equal size. NOSE: Clear with pink turbinates. THROAT: No erythema or exudates. NECK: No masses, no JVD. CHEST: No chest wall deformity. LUNGS: Equal air entry with bilateral posterior bases. Diminished. CVS: S1 and S2 normal with an audible systolic murmur, irregular rhythm. ABDOMEN: No hepatosplenomegaly, normal bowel sounds, no guarding or rigidity. Extremities: There is 1-2+ lower extremity peripheral edema. No clubbing, no cyanosis. Peripheral pulses are intact. - Labs CBC & Chem 7: 10/27/16 06:10 10/27/16 06:10 Labs: Abnormal Lab Results - Last 24 Hours (Table) 10/26/16 10/26/16 10/26/16 Range/Units 14:35 16:50 20:32 WBC (3.8-10.6) k/uL RBC (4.30-5.90) m/uL Hgb (13.0-17.5) gm/dL Hct (39.0-53.0) % Plt Count (150-450) k/uL Neutrophils # (1.3-7.7) k/uL Lymphocytes # (1.0-4.8) k/uL Monocytes # (0-1.0) k/uL Sodium 129 L (137-145) mmol/L Chloride 70 L* (98-107) mmol/L Carbon Dioxide 50 H* (22-30) mmol/L BUN 37 H (9-20) mg/dL Glucose (74-99) mg/dL POC Glucose (mg/dL) 116 H 195 H (75-99) mg/dL Calcium (8.4-10.2) mg/dL 10/27/16 10/27/16 10/27/16 Range/Units 06:10 06:10 06:21 WBC 16.7 H (3.8-10.6) k/uL RBC 6.11 H (4.30-5.90) m/uL Hgb 17.8 H (13.0-17.5) gm/dL Hct 54.5 H (39.0-53.0) % Plt Count 117 L (150-450) k/uL Neutrophils # 14.4 H (1.3-7.7) k/uL Lymphocytes # 0.6 L (1.0-4.8) k/uL Monocytes # 1.2 H (0-1.0) k/uL Sodium 129 L (137-145) mmol/L Chloride 73 L* (98-107) mmol/L Carbon Dioxide 50 H* (22-30) mmol/L BUN 46 H (9-20) mg/dL Glucose 124 H (74-99) mg/dL POC Glucose (mg/dL) 118 H (75-99) mg/dL Calcium 8.3 L (8.4-10.2) mg/dL 10/27/16 Range/Units 11:56 WBC (3.8-10.6) k/uL RBC (4.30-5.90) m/uL Hgb (13.0-17.5) gm/dL Hct (39.0-53.0) % Plt Count (150-450) k/uL Neutrophils # (1.3-7.7) k/uL Lymphocytes # (1.0-4.8) k/uL Monocytes # (0-1.0) k/uL Sodium (137-145) mmol/L Chloride (98-107) mmol/L Carbon Dioxide (22-30) mmol/L BUN (9-20) mg/dL Glucose (74-99) mg/dL POC Glucose (mg/dL) 180 H (75-99) mg/dL Calcium (8.4-10.2) mg/dL Assessment and Plan Plan: Impression: #1 Dyspnea, multifactorial in a patient found to have acute on chronic systolic congestive heart failure and acute on chronic exacerbation of chronic obstructive pulmonary disease. No clear evidence of pneumonia. #2 Severe cardiomyopathy with estimated ejection fraction 20%. #3 Chronic atrial fibrillation. Currently coagulated with Xarelto. #4 History of obstructive sleep apnea. #5 Hypertension. Plan: The patient was seen and evaluated by Dr. Liriano. We'll continue with his current medications. He has been initiated on Diamox. We'll continue to titrate down his FiO2 as tolerated. We'll continue to follow.
--- NOTE | 2016-10-27 15:29 | P.PN ---
Subjective Principal diagnosis: CHF This is a pleasant 55-year-old gentleman with a past medical history significant for cardiomyopathy with an ejection fraction of 20% based on echocardiogram was performed in June 2016, chronic atrial fibrillation, hypertension, and COPD, was brought from [facility] to [facility] for further evaluation and management.The patient is a poor historian. He lives in an extended care facility. He had some change in mental status lately and he was found to be more dyspneic. He was brought to the emergency room where he was found to be hypoxic. Currently the patient is requiring 6 L of nasal cannula to keep his oxygen above 90%. . Continues to be on IV Lasix. Weight is down 2 kg today. Sodium 129, potassium 3.7, heart rate remaining more stable on metoprolol tartrate TID. We'll discontinue the IV Lasix today and start the patient on oral diuretics. Repeat chest x-ray was performed today which revealed clearing of mild pulmonary congestion. Objective - Vital Signs Vital signs: Vital Signs Temp 97.8 F 10/27/16 11:31 Pulse 108 H 10/27/16 13:37 Resp 18 10/27/16 11:31 BP 122/75 10/27/16 11:31 Pulse Ox 90 L 10/27/16 11:31 Intake & Output 10/26/16 10/27/16 10/27/16 18:59 06:59 18:59 Intake Total 960 320 480 Output Total 1050 1000 Balance 960 -730 -520 Weight 110.8 kg Intake: IV 160 320 0.9 @20mls/hr 160 320 Oral 800 480 Output: Urine 1050 1000 Other: Voiding Method Urinal Urinal # Voids 1 # Bowel Movements 0 - Exam PHYSICAL EXAMINATION: HEENT: Head is atraumatic, normocephalic. Pupils equal, round. Neck is supple. There is no elevated jugular venous pressure. HEART EXAMINATION: S1 and S2 irregularly irregular systolic murmur is heard. CHEST EXAMINATION: On's reveal crackles to bilateral bases. ABDOMEN: Soft, nontender. Bowel sounds are heard. No organomegaly noted. EXTREMITIES: 2+ peripheral pulses with 1+ evidence of peripheral edema and no calf tenderness noted. NEUROLOGIC patient is awake, alert and oriented -3. . - Labs CBC & Chem 7: 10/27/16 06:10 10/27/16 06:10 Labs: Abnormal Lab Results - Last 24 Hours (Table) 10/26/16 10/26/16 10/26/16 Range/Units 14:35 16:50 20:32 WBC (3.8-10.6) k/uL RBC (4.30-5.90) m/uL Hgb (13.0-17.5) gm/dL Hct (39.0-53.0) % Plt Count (150-450) k/uL Neutrophils # (1.3-7.7) k/uL Lymphocytes # (1.0-4.8) k/uL Monocytes # (0-1.0) k/uL Sodium 129 L (137-145) mmol/L Chloride 70 L* (98-107) mmol/L Carbon Dioxide 50 H* (22-30) mmol/L BUN 37 H (9-20) mg/dL Glucose (74-99) mg/dL POC Glucose (mg/dL) 116 H 195 H (75-99) mg/dL Calcium (8.4-10.2) mg/dL 10/27/16 10/27/16 10/27/16 Range/Units 06:10 06:10 06:21 WBC 16.7 H (3.8-10.6) k/uL RBC 6.11 H (4.30-5.90) m/uL Hgb 17.8 H (13.0-17.5) gm/dL Hct 54.5 H (39.0-53.0) % Plt Count 117 L (150-450) k/uL Neutrophils # 14.4 H (1.3-7.7) k/uL Lymphocytes # 0.6 L (1.0-4.8) k/uL Monocytes # 1.2 H (0-1.0) k/uL Sodium 129 L (137-145) mmol/L Chloride 73 L* (98-107) mmol/L Carbon Dioxide 50 H* (22-30) mmol/L BUN 46 H (9-20) mg/dL Glucose 124 H (74-99) mg/dL POC Glucose (mg/dL) 118 H (75-99) mg/dL Calcium 8.3 L (8.4-10.2) mg/dL 10/27/16 Range/Units 11:56 WBC (3.8-10.6) k/uL RBC (4.30-5.90) m/uL Hgb (13.0-17.5) gm/dL Hct (39.0-53.0) % Plt Count (150-450) k/uL Neutrophils # (1.3-7.7) k/uL Lymphocytes # (1.0-4.8) k/uL Monocytes # (0-1.0) k/uL Sodium (137-145) mmol/L Chloride (98-107) mmol/L Carbon Dioxide (22-30) mmol/L BUN (9-20) mg/dL Glucose (74-99) mg/dL POC Glucose (mg/dL) 180 H (75-99) mg/dL Calcium (8.4-10.2) mg/dL Assessment and Plan (1) Systolic CHF, acute on chronic Status: Acute (2) Chronic a-fib Status: Acute (3) Schizo-affective schizophrenia Status: Acute (4) Chronic a-fib Status: Acute (5) High risk for readmission Status: Acute (6) Smoking Status: Acute Plan: From Cardiology's perspective, we will continue current dose of metoprolol tartrate, discontinue IV Lasix and start the patient on oral diuretics DNP note has been reviewed, I agree with a documented findings and plan of care. Patient was seen and examined.
[2016-10-27 16:38] LABS: Glucose,Whole Blood 136 mg/dL (75-99)
--- NOTE | 2016-10-27 17:12 | P.PN ---
Subjective Date of service 10/27/2016. Progress note being dictated for Dr. Omalley Interval history: This a 55-year-old gentleman admitted with acute respiratory failure, CHF, hypervolemic hyponatremia and multiple other medical issues. Lasix converted to oral , diuresing well with 24-hour I&O reflecting a negative fluid balance. Maintained on 6 L nasal cannula, maintaining O2 sats of 91%. Nonproductive cough. Telemetry reporting atrial fibrillation, controlled ventricular rate. Afebrile. Objective - Vital Signs Vital signs: Vital Signs Temp 97.3 F L 10/27/16 16:00 Pulse 132 H 10/27/16 16:00 Resp 18 10/27/16 16:00 BP 126/71 10/27/16 16:00 Pulse Ox 91 L 10/27/16 16:00 Intake & Output 10/26/16 10/27/16 10/27/16 18:59 06:59 18:59 Intake Total 960 320 480 Output Total 1050 1000 Balance 960 -730 -520 Weight 110.8 kg Intake: IV 160 320 0.9 @20mls/hr 160 320 Oral 800 480 Output: Urine 1050 1000 Other: Voiding Method Urinal Urinal # Voids 1 # Bowel Movements 0 - Exam PHYSICAL EXAM: VITAL SIGNS: As above GENERAL: [Sitting up in bed, no acute distress] HEENT: [Pupils equal conjunctiva normal. No conjunctival pallor.] NECK: [Supple, no JVD] RESPIRATORY EFFORT:[Normal] LUNGS: [Diminished,no wheezes, occasional scattered rhonchi] CARDIOVASCULAR[irregular, mildly tachycardic, positive systolic murmurs, rubs, gallops, positive edema] GI: [Abdomen soft, nontender, positive bowel sounds. No guarding, no rigidity] PSYCH: [Alert and oriented -3, mood and affect normal.] NEURO: [No focal deficit] - Labs CBC & Chem 7: 10/27/16 06:10 10/27/16 06:10 Labs: Abnormal Lab Results - Last 24 Hours (Table) 10/26/16 10/27/16 10/27/16 Range/Units 20:32 06:10 06:10 WBC 16.7 H (3.8-10.6) k/uL RBC 6.11 H (4.30-5.90) m/uL Hgb 17.8 H (13.0-17.5) gm/dL Hct 54.5 H (39.0-53.0) % Plt Count 117 L (150-450) k/uL Neutrophils # 14.4 H (1.3-7.7) k/uL Lymphocytes # 0.6 L (1.0-4.8) k/uL Monocytes # 1.2 H (0-1.0) k/uL Sodium 129 L (137-145) mmol/L Chloride 73 L* (98-107) mmol/L Carbon Dioxide 50 H* (22-30) mmol/L BUN 46 H (9-20) mg/dL Glucose 124 H (74-99) mg/dL POC Glucose (mg/dL) 195 H (75-99) mg/dL Calcium 8.3 L (8.4-10.2) mg/dL 10/27/16 10/27/16 10/27/16 Range/Units 06:21 11:56 16:32 WBC (3.8-10.6) k/uL RBC (4.30-5.90) m/uL Hgb (13.0-17.5) gm/dL Hct (39.0-53.0) % Plt Count (150-450) k/uL Neutrophils # (1.3-7.7) k/uL Lymphocytes # (1.0-4.8) k/uL Monocytes # (0-1.0) k/uL Sodium (137-145) mmol/L Chloride (98-107) mmol/L Carbon Dioxide (22-30) mmol/L BUN (9-20) mg/dL Glucose (74-99) mg/dL POC Glucose (mg/dL) 118 H 180 H 136 H (75-99) mg/dL Calcium (8.4-10.2) mg/dL Assessment and Plan Plan: 1. [Acute hypercapnic respiratory failure,]. 2. [Acute on chronic CHF, systolic exacerbation, EF 20%. 3. Severe cardiomyopathy, EF 20% 4. [Nicotine dependence]. 5. [Chronic Atrial fibrillation, anticoagulated on Xarelto]. 6. [Schizophrenia]. 7. Hypervolemic hyponatremia 8. Hypertension 9. Obstructive sleep apnea my history of Plan: Continue on current medication regime , nebulized bronchodilators , steroids, beta odalis, Diamox, monitoring and symptomatic treatment. Maintain Fluid restrictions. Continue diuresing with po Lasix. Close monitoring of electrolytes with repeat labs ordered for am. Smoking cessation readdressed. Further recommendations to follow. The impression and plan of care has been dictated as directed. : I performed a H&P examination of this patient and discussed the same with the dictator. I agree with the dictator's note. Any additional findings/opinions/ etc. will be noted.
[2016-10-27] MEDS ORDERED: Potassium Replacement Protocol 1 EACH MISC MISCELLANE PRN (17:13)
[2016-10-27] MEDS: FUROSEMIDE 40 MG TAB PO SCH (17:19)
[2016-10-27 21:00] LABS: Glucose,Whole Blood 115 mg/dL (75-99)
--- NOTE | 2016-10-27 21:21 | PN ---
DATE OF SERVICE: 10/27/2016 This 56-year-old gentleman who was admitted with CHF, acute exacerbation, acute hypercapnic respiratory failure, is being closely monitored. No chest pain or palpitation. No fever. The patient also is developing some amount of alkalosis; added Diamox. Seen and evaluated the patient along with the nurse practitioner. Please refer to the nurse practitioner's notes and impressions documented as a scribe for further information.
[2016-10-27] MEDS: PANTOPRAZOLE 40 MG TABLET PO SCH (21:57)
[2016-10-28 06:22] LABS: Glucose,Whole Blood 80 mg/dL (75-99)
[2016-10-28 06:33] LABS: CH 28.8; CHCM 32.4; HCT 52.6 % (39.0-53.0); HDW 2.79; HGB 16.9 gm/dL (13.0-17.5); Hypochromasia Slight; MCH 28.7 pg (25.0-35.0); MCHC 32.1 g/dL (31.0-37.0); MCV 89.2 fL (80.0-100.0); Mean Platelet Volume 7.8; RDW 14.6 % (11.5-15.5); WBC 15.2 k/uL (3.8-10.6); WBC (Perox) 14.78
[2016-10-28 06:38] LABS: Blood Urea Nitrogen 49 mg/dL (9-20); Calcium 8.3 mg/dL (8.4-10.2); Chloride 82 mmol/L (98-107); Glucose 88 mg/dL (74-99); Magnesium 2.2 mg/dL (1.6-2.3); Non-African American GFR(MDRD) 59 (>60 ml/min/1.73 sqM); Potassium 3.5 mmol/L (3.5-5.1); Sodium 133 mmol/L (137-145)
[2016-10-28] MEDS: INSULIN LISPRO (humaLOG) 300 UNIT/3 ML VIAL SQ SCH ×4 (06:43→21:21)
[2016-10-28 06:46] LABS: Anion Gap 7 mmol/L
[2016-10-28 06:51] LABS: Carbon Dioxide 44 mmol/L (22-30)
[2016-10-28 06:57] LABS: Add Differential Manual Differential
[2016-10-28 06:59] LABS: Manual Review Performed; Nucleated Red Blood Cells 0 /100 WBC (0-0); Total Cells Counted 100
[2016-10-28] MEDS: PALIPERIDONE 3 MG TAB.ER.24 PO SCH (08:59)
[2016-10-28] MEDS: METOPROLOL TARTRATE 50 MG TAB PO SCH ×3 (08:59→21:28)
[2016-10-28] MEDS: LORATADINE 10 MG TAB PO SCH (08:59)
[2016-10-28] MEDS: RIVAROXABAN 10 MG TAB PO SCH (08:59)
[2016-10-28] MEDS: AZITHROMYCIN 500 MG TAB PO SCH (08:59)
[2016-10-28] MEDS: predniSONE 10 MG TAB PO SCH (08:59)
[2016-10-28] MEDS: FUROSEMIDE 40 MG TAB PO SCH ×2 (09:00→16:26)
[2016-10-28] MEDS: acetaZOLAMIDE 250 MG TAB PO SCH (09:00)
[2016-10-28] MEDS: AMMONIUM LACTATE 12% CREAM 140 GM TUBE TOPICAL SCH ×2 (09:00→21:28)
[2016-10-28] MEDS: SYMBICORT 160-4.5 MCG INHALER INHALATION SCH ×2 (09:44→19:41)
[2016-10-28] MEDS: IPRATROPIUM-ALBUTEROL 3 ML NEB INHALATION SCH ×4 (09:44→19:40)
[2016-10-28 11:05] VITALS: BMI 37.2
[2016-10-28 12:46] LABS: Glucose,Whole Blood 110 mg/dL (75-99)
--- NOTE | 2016-10-28 12:48 | P.PN ---
Subjective Principal diagnosis: Acute exacerbation of systolic congestive heart failure This is a pleasant 55-year-old gentleman with a known history of systolic congestive heart failure, acute hypoxic respiratory failure, chronic nicotine dependence, atrial fibrillation, schizophrenia. He was admitted here on 2016 as a transfer from [facility] for an acute exacerbation of COPD as well as an acute exacerbation of congestive heart failure. He is seen again today in follow-up on the selective care unit. He is awake and alert in no acute distress. His breathing is easier today as compared to yesterday. Somewhat of a poor historian however. Echocardiogram showed significant cardiomyopathy with an ejection fraction of 20% he's been diuresed with Lasix 40 mg IV every 12 hours. He remains in a negative balance. Does continue to require 14 L of high flow nasal cannula to maintain O2 saturations in the 90s. He is currently afebrile. He is seen again today 10/27/2016 in follow-up on the selective care unit. He is awake and alert in no acute distress. Continues to require 6 L of nasal cannula to maintain O2 saturations in the low 90s. He has been afebrile. Denies any worsening shortness of breath today. He continues with a loose nonproductive cough. The patient was seen again today 10/28/2016 in follow-up on the selective care unit. He is currently up in the room and doing quite well. He denies any worsening shortness of breath, cough or congestion. His oxygen requirements are improving he is down to 4 L/m per nasal cannula to maintain O2 saturations in the 90s. He has been afebrile. Bicarb has improved. Sodium is up to 133. Objective - Vital Signs Vital signs: Vital Signs Temp 97.6 F 10/28/16 12:37 Pulse 116 H 10/28/16 12:37 Resp 18 10/28/16 12:37 BP 110/65 10/28/16 12:37 Pulse Ox 97 10/28/16 12:37 Intake & Output 10/27/16 10/28/16 10/28/16 18:59 06:59 18:59 Intake Total 480 160 180 Output Total 1000 750 Balance -520 -590 180 Weight 111.1 kg 111.1 kg Intake: IV 160 0.9 @20mls/hr 160 Oral 480 180 Output: Urine 1000 750 Other: Voiding Method Urinal Urinal Urinal # Voids 1 800 - Exam GENERAL EXAM: Alert, comfortable in no apparent distress. HEAD: Normocephalic. EYES: Normal reaction of pupils, equal size. NOSE: Clear with pink turbinates. THROAT: No erythema or exudates. NECK: No masses, no JVD. CHEST: No chest wall deformity. LUNGS: Equal air entry with bilateral posterior bases. Diminished. CVS: S1 and S2 normal with an audible systolic murmur, irregular rhythm. ABDOMEN: No hepatosplenomegaly, normal bowel sounds, no guarding or rigidity. Extremities: There is 1-2+ lower extremity peripheral edema. No clubbing, no cyanosis. Peripheral pulses are intact. - Labs CBC & Chem 7: 10/28/16 06:05 10/28/16 06:05 Labs: Abnormal Lab Results - Last 24 Hours (Table) 10/27/16 10/27/16 10/28/16 Range/Units 16:32 20:58 06:05 WBC 15.2 H (3.8-10.6) k/uL Plt Count 115 L (150-450) k/uL Neutrophils # (Manual) 12.5 H (1.3-7.7) k/uL Monocytes # (Manual) 1.1 H (0-1.0) k/uL Sodium (137-145) mmol/L Chloride (98-107) mmol/L Carbon Dioxide (22-30) mmol/L BUN (9-20) mg/dL Creatinine (0.66-1.25) mg/dL POC Glucose (mg/dL) 136 H 115 H (75-99) mg/dL Calcium (8.4-10.2) mg/dL 10/28/16 Range/Units 06:05 WBC (3.8-10.6) k/uL Plt Count (150-450) k/uL Neutrophils # (Manual) (1.3-7.7) k/uL Monocytes # (Manual) (0-1.0) k/uL Sodium 133 L (137-145) mmol/L Chloride 82 L (98-107) mmol/L Carbon Dioxide 44 H* (22-30) mmol/L BUN 49 H (9-20) mg/dL Creatinine 1.27 H (0.66-1.25) mg/dL POC Glucose (mg/dL) (75-99) mg/dL Calcium 8.3 L (8.4-10.2) mg/dL Assessment and Plan Plan: Impression: #1 Dyspnea, multifactorial in a patient found to have acute on chronic systolic congestive heart failure and acute on chronic exacerbation of chronic obstructive pulmonary disease. No clear evidence of pneumonia. #2 Severe cardiomyopathy with estimated ejection fraction 20%. #3 Chronic atrial fibrillation. Currently coagulated with Xarelto. #4 History of obstructive sleep apnea. #5 Hypertension. Plan: The patient was seen and evaluated by Dr. Liriano. We'll continue with his current medications. We'll increase his activity as tolerated We'll continue to follow.
--- NOTE | 2016-10-28 14:44 | P.PN ---
Subjective Principal diagnosis: CHF This is a pleasant 55-year-old gentleman with a past medical history significant for cardiomyopathy with an ejection fraction of 20% based on echocardiogram was performed in June 2016, chronic atrial fibrillation, hypertension, and COPD, was brought from [facility] to [facility] for further evaluation and management.The patient is a poor historian. He lives in an extended care facility. He had some change in mental status lately and he was found to be more dyspneic. He was brought to the emergency room where he was found to be hypoxic. Currently the patient is requiring 4 L of nasal cannula to keep his oxygen above 95%. Bicarb improving. Objective - Vital Signs Vital signs: Vital Signs Temp 97.6 F 10/28/16 12:37 Pulse 116 H 10/28/16 12:37 Resp 18 10/28/16 12:37 BP 110/65 10/28/16 12:37 Pulse Ox 97 10/28/16 12:37 Intake & Output 10/27/16 10/28/16 10/28/16 18:59 06:59 18:59 Intake Total 480 160 180 Output Total 1000 750 Balance -520 -590 180 Weight 111.1 kg 111.1 kg Intake: IV 160 0.9 @20mls/hr 160 Oral 480 180 Output: Urine 1000 750 Other: Voiding Method Urinal Urinal Urinal # Voids 1 800 - Exam PHYSICAL EXAMINATION: HEENT: Head is atraumatic, normocephalic. Pupils equal, round. Neck is supple. There is no elevated jugular venous pressure. HEART EXAMINATION: S1 and S2 irregularly irregular systolic murmur is heard. CHEST EXAMINATION: On's reveal crackles to bilateral bases. ABDOMEN: Soft, nontender. Bowel sounds are heard. No organomegaly noted. EXTREMITIES: 2+ peripheral pulses with 1+ evidence of peripheral edema and no calf tenderness noted. NEUROLOGIC patient is awake, alert and oriented -3. . - Labs CBC & Chem 7: 10/28/16 06:05 10/28/16 06:05 Labs: Abnormal Lab Results - Last 24 Hours (Table) 10/27/16 10/27/16 10/28/16 Range/Units 16:32 20:58 06:05 WBC 15.2 H (3.8-10.6) k/uL Plt Count 115 L (150-450) k/uL Neutrophils # (Manual) 12.5 H (1.3-7.7) k/uL Monocytes # (Manual) 1.1 H (0-1.0) k/uL Sodium (137-145) mmol/L Chloride (98-107) mmol/L Carbon Dioxide (22-30) mmol/L BUN (9-20) mg/dL Creatinine (0.66-1.25) mg/dL POC Glucose (mg/dL) 136 H 115 H (75-99) mg/dL Calcium (8.4-10.2) mg/dL 10/28/16 10/28/16 Range/Units 06:05 12:34 WBC (3.8-10.6) k/uL Plt Count (150-450) k/uL Neutrophils # (Manual) (1.3-7.7) k/uL Monocytes # (Manual) (0-1.0) k/uL Sodium 133 L (137-145) mmol/L Chloride 82 L (98-107) mmol/L Carbon Dioxide 44 H* (22-30) mmol/L BUN 49 H (9-20) mg/dL Creatinine 1.27 H (0.66-1.25) mg/dL POC Glucose (mg/dL) 110 H (75-99) mg/dL Calcium 8.3 L (8.4-10.2) mg/dL Assessment and Plan (1) Systolic CHF, acute on chronic Status: Acute (2) Chronic a-fib Status: Acute (3) Schizo-affective schizophrenia Status: Acute (4) Chronic a-fib Status: Acute (5) High risk for readmission Status: Acute (6) Smoking Status: Acute Plan: From Cardiology's perspective, we will continue current medications. Patient may be able to be discharged once cleared by pulmonary service. We will make him a follow-up appointment in the office post discharge. DNP note has been reviewed, I agree with a documented findings and plan of care. Patient was seen and examined.
--- NOTE | 2016-10-28 15:45 | P.PN ---
Subjective Date of service 10/28/2016. Progress note being dictated for Dr. Omalley Interval history: This a 55-year-old gentleman admitted with acute respiratory failure, CHF, hypervolemic hyponatremia and multiple other medical issues. Diuresing well on oral Lasix with 24-hour I&O reflecting a negative fluid balance. Renal function worsening .Oxygen further weaned to 4 L nasal cannula and maintaining O2 sats in the 90s. Telemetry reporting atrial fibrillation, 110s. Sodium improving, up to 133. Afebrile, WBC 15.2. Objective - Vital Signs Vital signs: Vital Signs Temp 97.6 F 10/28/16 12:37 Pulse 116 H 10/28/16 12:37 Resp 18 10/28/16 12:37 BP 110/65 10/28/16 12:37 Pulse Ox 97 10/28/16 12:37 Intake & Output 10/27/16 10/28/16 10/28/16 18:59 06:59 18:59 Intake Total 480 160 180 Output Total 1000 750 Balance -520 -590 180 Weight 111.1 kg 111.1 kg Intake: IV 160 0.9 @20mls/hr 160 Oral 480 180 Output: Urine 1000 750 Other: Voiding Method Urinal Urinal Urinal # Voids 1 800 - Exam PHYSICAL EXAM: VITAL SIGNS: As above GENERAL: [Sitting up in bed, no acute distress] HEENT: [Pupils equal conjunctiva normal. No conjunctival pallor.] NECK: [Supple, no JVD] RESPIRATORY EFFORT:[Normal] LUNGS: [Diminished, no wheezes, occasional scattered rhonchi] CARDIOVASCULAR[irregular, mildly tachycardic, positive systolic murmurs, rubs, gallops, positive edema] GI: [Abdomen soft, nontender, positive bowel sounds. No guarding, no rigidity] PSYCH: [Alert and oriented -3, mood and affect normal.] NEURO: [No focal deficit] - Labs CBC & Chem 7: 10/28/16 06:05 10/28/16 06:05 Labs: Abnormal Lab Results - Last 24 Hours (Table) 10/27/16 10/27/16 10/28/16 Range/Units 16:32 20:58 06:05 WBC 15.2 H (3.8-10.6) k/uL Plt Count 115 L (150-450) k/uL Neutrophils # (Manual) 12.5 H (1.3-7.7) k/uL Monocytes # (Manual) 1.1 H (0-1.0) k/uL Sodium (137-145) mmol/L Chloride (98-107) mmol/L Carbon Dioxide (22-30) mmol/L BUN (9-20) mg/dL Creatinine (0.66-1.25) mg/dL POC Glucose (mg/dL) 136 H 115 H (75-99) mg/dL Calcium (8.4-10.2) mg/dL 10/28/16 10/28/16 Range/Units 06:05 12:34 WBC (3.8-10.6) k/uL Plt Count (150-450) k/uL Neutrophils # (Manual) (1.3-7.7) k/uL Monocytes # (Manual) (0-1.0) k/uL Sodium 133 L (137-145) mmol/L Chloride 82 L (98-107) mmol/L Carbon Dioxide 44 H* (22-30) mmol/L BUN 49 H (9-20) mg/dL Creatinine 1.27 H (0.66-1.25) mg/dL POC Glucose (mg/dL) 110 H (75-99) mg/dL Calcium 8.3 L (8.4-10.2) mg/dL Assessment and Plan Plan: 1. [Acute hypercapnic respiratory failure,]. 2. [Acute on chronic CHF, systolic exacerbation, EF 20%. 3. Severe cardiomyopathy, EF 20% 4. [Nicotine dependence]. 5. [Chronic Atrial fibrillation, anticoagulated on Xarelto]. 6. [Schizophrenia]. 7. Hypervolemic hyponatremia 8. Hypertension 9. Obstructive sleep apnea my history of Plan: Continue on current medication regime , diuretics, nebulized bronchodilators , steroids, beta odalis, monitoring and symptomatic treatment. Maintain Fluid restrictions. Close monitoring of renal function with repeat labs ordered for a.m. Smoking cessation readdressed. Further recommendations to follow. The impression and plan of care has been dictated as directed. : I performed a H&P examination of this patient and discussed the same with the dictator. I agree with the dictator's note. Any additional findings/opinions/ etc. will be noted.
[2016-10-28 17:39] LABS: Glucose,Whole Blood 118 mg/dL (75-99)
[2016-10-28 21:16] LABS: Glucose,Whole Blood 118 mg/dL (75-99)
[2016-10-28] MEDS: PANTOPRAZOLE 40 MG TABLET PO SCH (21:28)
[2016-10-29 05:58] LABS: Glucose,Whole Blood 87 mg/dL (75-99)
[2016-10-29] MEDS: INSULIN LISPRO (humaLOG) 300 UNIT/3 ML VIAL SQ SCH ×3 (06:08→17:22)
[2016-10-29 07:08] LABS: CH 28.5; CHCM 31.4; HCT 52.4 % (39.0-53.0); HDW 2.61; HGB 15.8 gm/dL (13.0-17.5); Hypochromasia Slight; MCH 27.4 pg (25.0-35.0); MCHC 30.2 g/dL (31.0-37.0); MCV 90.8 fL (80.0-100.0); Mean Platelet Volume 8.7; RBC 5.77 m/uL (4.30-5.90); RDW 14.7 % (11.5-15.5); WBC (Perox) 15.59
[2016-10-29 07:10] LABS: Anion Gap 7 mmol/L; Blood Urea Nitrogen 43 mg/dL (9-20); Carbon Dioxide 39 mmol/L (22-30); Chloride 85 mmol/L (98-107); Glucose 80 mg/dL (74-99); Non-African American GFR(MDRD) >60 (>60 ml/min/1.73 sqM); Potassium 3.6 mmol/L (3.5-5.1); Sodium 131 mmol/L (137-145)
[2016-10-29] MEDS: SYMBICORT 160-4.5 MCG INHALER INHALATION SCH ×2 (08:52→19:33)
[2016-10-29] MEDS: IPRATROPIUM-ALBUTEROL 3 ML NEB INHALATION SCH ×4 (08:52→19:33)
[2016-10-29 08:54] LABS: Add Differential Manual Differential
[2016-10-29 08:56] LABS: Nucleated Red Blood Cells 0 /100 WBC (0-0); Total Cells Counted 100
[2016-10-29 08:57] LABS: Target Cells Present
[2016-10-29] MEDS: PALIPERIDONE 3 MG TAB.ER.24 PO SCH (09:01)
[2016-10-29] MEDS: LORATADINE 10 MG TAB PO SCH (09:01)
[2016-10-29] MEDS: AMMONIUM LACTATE 12% CREAM 140 GM TUBE TOPICAL SCH ×2 (09:01→20:37)
[2016-10-29] MEDS: METOPROLOL TARTRATE 50 MG TAB PO SCH ×2 (09:01→15:22)
[2016-10-29] MEDS: RIVAROXABAN 10 MG TAB PO SCH (09:01)
[2016-10-29] MEDS: AZITHROMYCIN 500 MG TAB PO SCH (09:02)
[2016-10-29] MEDS: FUROSEMIDE 40 MG TAB PO SCH ×2 (09:02→15:22)
[2016-10-29] MEDS: acetaZOLAMIDE 250 MG TAB PO SCH (09:02)
[2016-10-29] MEDS: predniSONE 10 MG TAB PO SCH (09:02)
--- NOTE | 2016-10-29 10:30 | PN ---
DATE OF SERVICE: 10/28/2016 This 56-year-old gentleman who was admitted with acute hypercapnic respiratory failure also had features of CHF. Seen and evaluated the patient along with the nurse practitioner. Please refer to the nurse practitioner notes and impression documented for further information. Further recommendations to follow.
[2016-10-29 11:51] LABS: Glucose,Whole Blood 95 mg/dL (75-99)
[2016-10-29 16:42] LABS: Glucose,Whole Blood 136 mg/dL (75-99)
--- NOTE | 2016-10-29 18:29 | PN ---
This is a pleasant 56-year-old gentleman with a history of underlying shortness of breath. His shortness of breath is explained by acute on chronic systolic CHF as well as COPD exacerbation. No evidence of pneumonia or any significant infection for that matter. The patient also suffers from severe cardiomyopathy with ejection fraction of 20%, chronic atrial fibrillation, history of sleep apnea and hypertension. When I went into the room today he was sleeping. He does not admit to any major issues or problems. The shortness of breath is dramatically improved. Yesterday, he was up taking a shower. Anyway feels a lot better. No cough, no wheezing. No phlegm. No fever, no chills. No nausea, vomiting, diarrhea. No chest pain. CURRENT VITAL SIGNS: Temperature 96.9, heart rate 99, respiratory rate 18, blood pressure 105/72, mean 83, 2 L saturation 92% to 93%. Appears in no acute distress, was in no distress when I first walked in the room as he was sleeping. HEENT examination is grossly unremarkable. Mucous membranes are moist. No oral lesions. Neck is supple. Full range of motion. No adenopathy or thyromegaly. No neck vein distention. Cardiovascular examination reveals a regular rhythm and rate. Soft systolic murmur is heard. S1, S2 normal. A soft systolic murmur is heard. No S3, S4. Lungs are relatively clear, but somewhat diminished breath sounds. No wheezes, rhonchi or crackles. Abdomen is obese. Bowel sounds are heard. No masses. Extremities are intact. No cyanosis, clubbing or edema. Skin is without rash. Neurologic examination is nonfocal. Labs are reviewed. White count 16, hemoglobin 15.8, hematocrit 52.4, platelet count 115,000. Sodium 131, potassium 3.6, chloride 85, CO2 of 39, BUN and creatinine were 42 and 1.01. Microbiology is all negative. Medications are reviewed. ASSESSMENT: 1. Shortness of breath, multifactorial, in part related to underlying acute on chronic systolic congestive heart failure and chronic obstructive pulmonary disease exacerbation. 2. No evidence of pneumonia. 3. Severe cardiomyopathy with ejection fraction of 20%. 4. Chronic atrial fibrillation. 5. History of sleep apnea syndrome. 6. Hypertension. PLAN: Medications are reviewed. They are appropriate. His antibiotics actually can be discontinued. He is on prednisone 30 mg a day. I will DC the Zithromax. No additional recommendations are made. He remains on updrafts and Symbicort. Will continue to follow. Prognosis is guarded.
[2016-10-29 20:17] LABS: Glucose,Whole Blood 110 mg/dL (75-99)
[2016-10-29] MEDS: PANTOPRAZOLE 40 MG TABLET PO SCH (20:36)
[2016-10-30] MEDS: METOPROLOL TARTRATE 50 MG TAB PO SCH ×4 (06:38→22:38)
[2016-10-30] MEDS: INSULIN LISPRO (humaLOG) 300 UNIT/3 ML VIAL SQ SCH (06:38)
[2016-10-30] MEDS: PALIPERIDONE 3 MG TAB.ER.24 PO SCH (07:22)
[2016-10-30] MEDS: acetaZOLAMIDE 250 MG TAB PO SCH (07:23)
[2016-10-30] MEDS: RIVAROXABAN 10 MG TAB PO SCH (07:23)
[2016-10-30] MEDS: LORATADINE 10 MG TAB PO SCH (07:23)
[2016-10-30] MEDS: predniSONE 10 MG TAB PO SCH (07:23)
[2016-10-30] MEDS: FUROSEMIDE 40 MG TAB PO SCH ×2 (07:24→15:57)
[2016-10-30] MEDS: AMMONIUM LACTATE 12% CREAM 140 GM TUBE TOPICAL SCH ×2 (07:27→21:30)
[2016-10-30] MEDS: SYMBICORT 160-4.5 MCG INHALER INHALATION SCH (07:45)
[2016-10-30] MEDS: IPRATROPIUM-ALBUTEROL 3 ML NEB INHALATION SCH ×3 (07:46→15:50)
--- NOTE | 2016-10-30 14:52 | PN ---
DATE OF SERVICE: 10/29/2016 This 56-year-old gentleman was admitted with CHF acute exacerbation, closely monitored at this time. The patient still has shortness of breath. The patient also had a significantly mentally challenged also. No chest pains, no palpitations, no fever. On exam, alert and oriented x2. Pulse 95, blood pressure 100/60, respirations 14, temperature 98.2, pulse ox 92% on room air. HEENT: Conjunctivae normal. NECK: No jugular venous distention. CARDIOVASCULAR: S1 and S2, muffled. RESPIRATORY: Breath sounds diminished at the bases. A few scattered rhonchi. ABDOMEN: Soft, nontender. NERVOUS SYSTEM: No focal deficits. LABS: WBC 16, sodium 131. ASSESSMENT: 1. Congestive heart failure, acute exacerbation with acute on chronic systolic dysfunction, ejection fraction 20% with acute hypercapnic hypoxic respiratory failure. 2. Severe cardiomyopathy with ejection fraction of 20%. 3. History of nicotine dependence. 4. History of chronic atrial fibrillation, persistent anticoagulated with Xarelto. 5. History of schizophrenia. 6. Mentally challenged. 7. Hypovolemic hyponatremia. 8. Hypertension. 9. Obstructive sleep apnea history. 10. FULL CODE. RECOMMENDATIONS AND DISCUSSION: In 56-year-old gentleman who presented with multiple complex medical issues, will monitor the patient closely. Continue the current medications, continue symptomatic treatment. Continue diuretics. Otherwise, the patient's carbon dioxide also improved significantly. Increase ambulation. Guarded prognosis. Further recommendations to follow.
--- NOTE | 2016-10-30 17:44 | PN ---
56-year-old gentleman with history of underlying shortness of breath. His shortness of breath is explained based on the presence of both acute on chronic systolic congestive heart failure as well as chronic obstructive pulmonary exacerbation. The patient doing much better. Moved from the sixth floor down to the third floor yesterday. He does have a severe cardiomyopathy with an ejection fraction of 20%. Also has a history of chronic atrial fibrillation, sleep apnea syndrome, hypertension. Doing relatively well today. Currently vital signs include temperature 98.4, heart rate 90, respiratory rate 20, blood pressure 99/82, room air saturation 93%, 2 liters saturation 95%. Appears in no acute distress. HEENT examination is grossly unremarkable. Mucous membranes are moist. No oral lesions. Neck is supple. Full range of motion. No adenopathy or thyromegaly. Cardiovascular examination reveals regular rhythm and rate. Heart sounds are distant. A soft systolic murmur is noted. S1, S2 normal. Lungs reveal mostly clear breath sound, a few scattered rhonchi. No crackles or wheezes. Abdomen soft. Bowel sounds are heard. Extremities are intact. Mild edema. Skin is without rash or lesion. Neurological examination is nonfocal. Labs are reviewed. Nothing new from today as yet. Labs from yesterday are reviewed. No recent chest x-ray. The most recent chest x-ray was done on October 26 and shows no active cardiopulmonary disease. Medications are reviewed. ASSESSMENT: 1. Shortness of breath, multifactorial, in part related to underlying acute on chronic systolic congestive heart failure and chronic obstructive pulmonary disease exacerbation. 2. No evidence of pneumonia. 3. Severe cardiomyopathy with ejection fraction of 20%. 4. Chronic atrial fibrillation. 5. History of sleep apnea syndrome. 6. History of hypertension. The patient is doing well. Zithromax was discontinued yesterday. He is on a prednisone taper. Will continue to follow. Prognosis is guarded.
[2016-10-30] MEDS: PANTOPRAZOLE 40 MG TABLET PO SCH ×2 (21:29→21:30)
[2016-10-31] MEDS: IPRATROPIUM-ALBUTEROL 3 ML NEB INHALATION SCH ×4 (00:16→15:39)
[2016-10-31] MEDS: SYMBICORT 160-4.5 MCG INHALER INHALATION SCH ×3 (00:16→07:46)
--- NOTE | 2016-10-31 08:05 | XR ---
EXAMINATION TYPE: XR chest 2V DATE OF EXAM: 10/31/2016 7:20 AM COMPARISON: 10/26/2014 TECHNIQUE: PA and lateral views submitted. HISTORY: Shortness of breath FINDINGS: The lungs are clear and there is no pneumothorax, pleural effusion, or focal pneumonia. Arthropathy of the shoulders noted. Hypertrophic change of the spine. IMPRESSION: 1. No acute process.
[2016-10-31] MEDS: PALIPERIDONE 3 MG TAB.ER.24 PO SCH (08:45)
[2016-10-31] MEDS: predniSONE 10 MG TAB PO SCH (08:46)
[2016-10-31] MEDS: RIVAROXABAN 10 MG TAB PO SCH (08:47)
[2016-10-31] MEDS: acetaZOLAMIDE 250 MG TAB PO SCH (08:47)
[2016-10-31] MEDS: METOPROLOL TARTRATE 50 MG TAB PO SCH (08:47)
[2016-10-31] MEDS: LORATADINE 10 MG TAB PO SCH (08:48)
[2016-10-31] MEDS: FUROSEMIDE 40 MG TAB PO SCH (08:48)
--- NOTE | 2016-10-31 08:49 | PN ---
DATE OF SERVICE: 10/30/2016 This is a 56-year-old gentleman admitted with CHF acute exacerbation, also had severe cardiomyopathy. Patient improved significantly. No chest or palpitation. No fever. The mental status is baseline. On exam, pulse is 101, blood pressure is 116/77, respirations 16, temperature is 97.1, pulse ox is 93% on room air. HEENT: Conjunctivae normal. NECK: No jugular venous distension. CARDIOVASCULAR: S1, S2, muffled. RESPIRATORY: Breath sounds diminished at the bases, a few scattered rhonchi, no crackles. Abdomen is soft, obese. NERVOUS SYSTEM: No focal deficits. LABS: WBC is 16, platelets are 115, sodium 130. ASSESSMENT: 1. Congestive heart failure acute exacerbation, with acute on chronic systolic dysfunction, ejection of 20% with acute hypercapnic hypoxic respiratory failure. 2. Severe cardiomyopathy with ejection fraction 30%. 3. History of nicotine dependence. 4. History of chronic atrial fibrillation, persistent with anticoagulation with Xarelto. 5. History of schizophrenia. 6. Mentally challenged. 7. Hypovolemic, hyponatremia. 8. Hypertension. 9. Obstructive sleep apnea history. 10. FULL CODE. RECOMMENDATION: Recommend to continue with the monitoring and symptomatic treatment. Otherwise at this time, continue with the p.o. diuretics. Otherwise, guarded prognosis, further recommendations to follow.
[2016-10-31 08:51] LABS: Basophils % (A) 0 %; CH 28.5; CHCM 31.6; Eosinophils # (A) 0.2 k/uL (0-0.7); Eosinophils % (A) 2 %; HCT 50.1 % (39.0-53.0); HDW 2.67; HGB 15.5 gm/dL (13.0-17.5); Hypochromasia Slight; Luc # (Auto) 0.51; Luc % (Auto) 4; Lymphocytes # (A) 1.2 k/uL (1.0-4.8); Lymphocytes % (A) 9 %; MCV 90.5 fL (80.0-100.0); Mean Platelet Volume 8.4; Monocytes # (A) 1.3 k/uL (0-1.0); Monocytes % (A) 9 %; Neutrophils # (A) 10.4 k/uL (1.3-7.7); Neutrophils % (A) 76 %; RBC 5.54 m/uL (4.30-5.90); RDW 14.8 % (11.5-15.5); WBC 13.7 k/uL (3.8-10.6); WBC (Perox) 13.97
[2016-10-31 09:26] LABS: Anion Gap 7 mmol/L; Blood Urea Nitrogen 36 mg/dL (9-20); Calcium 8.4 mg/dL (8.4-10.2); Carbon Dioxide 37 mmol/L (22-30); Chloride 93 mmol/L (98-107); Glucose 85 mg/dL (74-99); Non-African American GFR(MDRD) 59 (>60 ml/min/1.73 sqM); Potassium 3.7 mmol/L (3.5-5.1); Sodium 137 mmol/L (137-145)
[2016-10-31 09:30] LABS: Glucose,Whole Blood 132 mg/dL (75-99)
[2016-10-31 10:51] VITALS: BP 101/73; RESP 18; TEMP 97.5
[2016-10-31 11:38] LABS: Glucose,Whole Blood 121 mg/dL (75-99)
--- NOTE | 2016-10-31 12:52 | DS ---
DATE OF ADMISSION: 10/23/2016 DATE OF DISCHARGE: DATE OF SERVICE; 10/31/2016 FINAL DIAGNOSES: 1. Congestive heart failure acute exacerbation with acute on chronic systolic dysfunction, ejection fraction 20% with acute hypercapnic hypoxic respiratory failure. 2. Severe cardiomyopathy, ejection fraction 30%. 3. History of nicotine dependence. 4. History of chronic atrial fibrillation persistent with anticoagulation with Xarelto. 5. History of schizophrenia. 6. Mentally challenged. 7. Hypovolemic hyponatremia. 8. Hypertension. 9. Obstructive sleep apnea history. 10. FULL CODE. DISCHARGE DISPOSITION: The patient will be discharged in a stable condition with guarded prognosis. Total time taken is 35 minutes. HISTORY OF PRESENT ILLNESS: This is a 56-year-old gentleman with a past medical history of multiple medical problems was admitted with CHF acute exacerbation, patient also had cardiomyopathy, treated symptomatically. The patient improved significantly. The most recent chest x-ray showed significant improvement. On exam, vitals stable. CARDIOVASCULAR SYSTEM: S1, S2 muffled. ABDOMEN: Soft. NERVOUS SYSTEM: No focal deficits. RESPIRATORY: A few scattered rhonchi. DISCHARGE ADVICE: 1. Diet is cardiac. 2. Activity limited until follow. 3. Follow up with Dr. Clifton Aragon in 2 to 3 days. 4. Follow up with Dr. Liriano and Dr. Wheatley as recommended. 5. CBC, BMP in 2 to 3 days with continued followup. The patient will be transferred to [facility]. MEDICATIONS: 1. Lac-Hydrin 1 daily. 2. Symbicort 160/4.5 two puffs b.i.d. 3. Zyrtec 10 mg p.o. daily. 4. Flonase 1 to 2 spray p.r.n. 5. Lasix 40 mg p.o. b.i.d. 6. Albuterol Atrovent updrafts q.i.d. and p.r.n. 7. Lopressor 50 mg p.o. t.i.d. 8. Prilosec 40 mg q.h.s. 9. Invega 9 mg p.o. daily. 10. Xarelto 20 mg daily. 11. Diamox 250 mg p.o. daily. 12. Prednisone 30 mg daily for 3 days, 20 for 3 days, 10 for 3 days and then discontinue.
[2016-10-31 15:42] VITALS: PULSE 100
--- NOTE | 2016-10-31 16:36 | P.PN ---
Subjective 56-year-old male patient was Hospital as for an acute COPD exacerbation. Today the patient is being seen in follow-up. The patient also has multiple medical problems and comorbidities including congestion heart failure with severe cardiomyopathy and ejection fraction of 20%. He is also known to have chronic atrial fibrillation and hypertension obstructive sleep apnea. On today's evaluation, the patient is less short of breath. No significant chest pain. He is able to speak of. This is. No cough or sputum production. Last bronchus spastic and wheezy compared to yesterday. The most recent chest x -rays from 10/26/2016 and there was no evidence of any acute cardiopulmonary disease. His CHF is also being compensated for now. Objective - Vital Signs Vital signs: Vital Signs Temp 97.5 F L 10/31/16 08:40 Pulse 100 10/31/16 15:53 Resp 18 10/31/16 08:40 BP 101/73 10/31/16 08:40 Pulse Ox 92 L 10/31/16 08:40 Intake & Output 10/30/16 10/31/16 10/31/16 18:59 06:59 18:59 Intake Total 1320 360 Output Total 500 500 500 Balance 820 -140 -500 Weight 110.2 kg 110.2 kg 110.2 kg Intake: IV 160 0.9 @20mls/hr 160 Oral 1320 200 Output: Urine 500 500 500 Other: Voiding Method Toilet Toilet Toilet # Voids 2 1 1 # Bowel Movements 0 0 0 - Exam The patient appeared well nourished and normally developed. Vital signs as documented. Head exam is unremarkable. No scleral icterus or corneal arcus noted. Neck is without jugular venous distension, thyromegaly, or carotid bruits. Carotid upstrokes are brisk bilaterally. Lungs diminished in lung bases bilaterally. Otherwise there is no significant wheezes or rhonchi any crackles. Cardiac exam reveals the PMI to be normally sized and situated. Rhythm is regular. First and second heart sounds normal. No murmurs, rubs or gallops. Abdominal exam reveals normal bowel sounds, no masses, no organomegaly and no aortic enlargement. Extremities are nonedematous and both femoral and pedal pulses are normal. - Labs CBC & Chem 7: 10/31/16 08:25 10/31/16 08:25 Labs: Abnormal Lab Results - Last 24 Hours (Table) 10/31/16 10/31/16 10/31/16 Range/Units 08:25 08:25 09:29 WBC 13.7 H (3.8-10.6) k/uL Plt Count 134 L (150-450) k/uL Neutrophils # 10.4 H (1.3-7.7) k/uL Monocytes # 1.3 H (0-1.0) k/uL Chloride 93 L (98-107) mmol/L Carbon Dioxide 37 H (22-30) mmol/L BUN 36 H (9-20) mg/dL Creatinine 1.26 H (0.66-1.25) mg/dL POC Glucose (mg/dL) 132 H (75-99) mg/dL 10/31/16 Range/Units 11:17 WBC (3.8-10.6) k/uL Plt Count (150-450) k/uL Neutrophils # (1.3-7.7) k/uL Monocytes # (0-1.0) k/uL Chloride (98-107) mmol/L Carbon Dioxide (22-30) mmol/L BUN (9-20) mg/dL Creatinine (0.66-1.25) mg/dL POC Glucose (mg/dL) 121 H (75-99) mg/dL Assessment and Plan Plan: Assessment 1 shortness of breath, multifactorial 2 CHF with an ejection fraction of 20% when acute exacerbation of chronic systolic dysfunction, improving 3 COPD exacerbation, improving 4 chronic atrial fibrillation and the patient is articulation with Xarelto 5 schizophrenia 6 nicotine addiction/smoking 7 hypertension 8 nicotine dependence 9 obstructive sleep apnea, history of Plan Encourage weight loss. Continue the DuoNeb nebulized treatments around the clock. We'll utilize Symbicort as a maintenance treatment for COPD. Management of CHF. Management of long-term chronic atrial fibrillation by anticoagulation. We'll continue to follow.
== END 2016-10-31 14:40 | DRG 291 ==
LOC: 6SEL 13:29 → 3SUR 10-29 19:13 → 5MS5E 10-30 17:30
PROVIDERS: ADMIT Internal Medicine; ATTEND Internal Medicine
DX: I11.0 Hypertensive heart disease with heart failure (principal); J96.21 Acute and chronic respiratory failure with hypoxia; E87.3 Alkalosis; I27.81 Cor pulmonale (chronic); E87.1 Hypo-osmolality and hyponatremia; I48.1 Persistent atrial fibrillation; E86.1 Hypovolemia; E66.01 Morbid (severe) obesity due to excess calories; I42.9 Cardiomyopathy, unspecified; I48.2 Chronic atrial fibrillation; J96.22 Acute and chronic respiratory failure with hypercapnia; J44.1 Chronic obstructive pulmonary disease with (acute) exacerbation; I50.23 Acute on chronic systolic (congestive) heart failure; E78.5 Hyperlipidemia, unspecified; F17.200 Nicotine dependence, unspecified, uncomplicated; F25.9 Schizoaffective disorder, unspecified; G47.33 Obstructive sleep apnea (adult) (pediatric); Z79.01 Long term (current) use of anticoagulants; Z79.899 Other long term (current) drug therapy; Z86.14 Personal history of Methicillin resistant Staphylococcus aureus infection; Z91.14 Patient's other noncompliance with medication regimen
CPT/HCPCS: 71010; 71020; 80048; 80051; 80053; 82570; 83036; 83735; 83930; 83935; 84100; 84300; 84443; 84520; 85025; 85027; 93306; 94640; 94760

== ENCOUNTER 2017-08-12 08:18 | Inpatient (IN) | payer MEDICARE, OTHER ==
--- NOTE | 2017-08-12 10:47 | ED ---
Abdominal Pain HPI - General Chief Complaint: Abdominal Pain Stated Complaint: nausea, vomiting Time Seen by Provider: 08/12/17 08:18 Source: patient, EMS, RN notes reviewed, old records reviewed Mode of arrival: EMS Limitations: no limitations - History of Present Illness Initial Comments: This is a 56-year-old male with a history of. Schizophrenia posttraumatic stress disorder alcohol dependence chronic A. fib peripheral artery disease hemorrhoids sleep apnea and PE who was transferred from [facility] this morning for evaluation for small bowel obstruction. Additionally he was noted have a very elevated heart rate listed seem to spontaneously improve. Patient denies currently any fevers chills nausea vomiting sweats he states his abdomen is somewhat distended in her swelling is palpated deeply. No other complaints at this time. MD Complaint: abdominal pain, other - Related Data Home Medications Medication Instructions Recorded Confirmed Paliperidone [Invega] 9 mg PO DAILY 01/15/15 10/23/16 Rivaroxaban [Xarelto] 20 mg PO DAILY 01/15/15 10/23/16 Ammonium Lactate Cream [Lac-Hydrin 1 applic TOPICAL BID 10/23/16 10/23/16 12% Cream] Cetirizine HCl [Zyrtec] 10 mg PO DAILY 10/23/16 10/23/16 Fluticasone Nasal [place] [Flonase 1 - 2 spray EA NOSTRIL DAILY PRN 10/23/1610/23 Nasal [place]] Omeprazole [PriLOSEC] 40 mg PO HS 10/23/16 10/23/16 Previous Rx's Medication Instructions Recorded Budesonide-Formot 160-4.5 Mcg 2 puff INHALATION RT-BID puff 10/31/16 [Symbicort 160-4.5 Mcg Inhaler] Furosemide [Lasix] 40 mg PO BID@0900,1600 tab 10/31/16 Ipratropium-Albuterol Nebulize 3 ml INHALATION RT-Q4H PRN #0 10/31/16 [Duoneb 0.5 mg-3 mg/3 ml Soln] ampul.neb Ipratropium-Albuterol Nebulize 3 ml INHALATION RT-QID ampul.neb 10/31/16 [Duoneb 0.5 mg-3 mg/3 ml Soln] Metoprolol Tartrate [Lopressor] 50 mg PO TID tab 10/31/16 acetaZOLAMIDE [Diamox] 250 mg PO DAILY #0 tab 10/31/16 predniSONE 10 mg PO DIRECTED #18 tab 10/31/16 Allergies Allergy/AdvReac Type Severity Reaction Status Date / Time benztropine mesylate Allergy Rash/Hives Verified 10/23/16 14:31 [From Twan] laundry detergent Allergy Mild Rash/Hives Uncoded 06/04/15 11:53 laundry soap Allergy Rash/Hives Uncoded 06/04/15 11:53 Review of Systems ROS Statement: Those systems with pertinent positive or pertinent negative responses have been documented in the HPI. ROS Other: All systems not noted in ROS Statement are negative. Past Medical History Past Medical History: Atrial Fibrillation, Chest Pain / Angina, Heart Failure, COPD, Hypertension, Osteoarthritis (OA) Additional Past Medical History / Comment(s): noncompliant with medications. Schizophrenia all information gatherd from medical records from [facility] records and the patient. History of Any Multi-Drug Resistant Organisms: MRSA Date of last positivie culture/infection: 07/07/14 MDRO Source:: LT LEG Past Surgical History: Tonsillectomy Past Anesthesia/Blood Transfusion Reactions: No Reported Reaction Past Psychological History: Anxiety, Schizophrenia Smoking Status: Former smoker Past Alcohol Use History: Occasional Past Drug Use History: None Reported - Past Family History Father Family Medical History: No Reported History General Exam - General Exam Comments Initial Comments: This is a well-developed well-nourished awake alert oriented 3 male Limitations: no limitations General appearance: alert, in no apparent distress Head exam: Present: atraumatic, normocephalic, normal inspection Eye exam: Present: normal appearance, PERRL, EOMI. Absent: scleral icterus, conjunctival injection, periorbital swelling ENT exam: Present: normal exam, mucous membranes moist Neck exam: Present: normal inspection. Absent: tenderness, meningismus, lymphadenopathy Respiratory exam: Present: normal lung sounds bilaterally. Absent: respiratory distress, wheezes, rales, rhonchi, stridor Cardiovascular Exam: Present: tachycardia, irregular rhythm. Absent: systolic murmur, diastolic murmur, rubs, gallop, clicks GI/Abdominal exam: Present: soft, distended, normal bowel sounds. Absent: tenderness, guarding, rebound, rigid Extremities exam: Present: normal inspection, full ROM, normal capillary refill. Absent: tenderness, pedal edema, joint swelling, calf tenderness Back exam: Present: normal inspection Neurological exam: Present: alert, oriented X3, CN II-XII intact Psychiatric exam: Present: normal affect, normal mood Skin exam: Present: warm, dry, intact, normal color. Absent: rash Course Vital Signs 08/12/17 08/12/17 08:23 10:18 Temperature 97.6 F Pulse Rate 115 H 106 H Respiratory 18 18 Rate Blood Pressure 151/85 149/80 O2 Sat by Pulse 98 99 Oximetry Medical Decision Making - Medical Decision Making I did review the materials from the other hospital. CAT scan was reviewed there is evidence of a possible SBO. I did discuss the case with the admitting service physician Dr. Rosa patient will be admitted with consultation by surgery. Patient will be placed on Cardizem drip due to the persistently elevated heart rate. Disposition Clinical Impression: Small bowel obstruction, Rapid atrial fibrillation Disposition: ADMITTED IP TO THIS HOSP Condition: Stable Referrals: Ed Rajan MD [Primary Care Provider] - 1-2 days
[2017-08-12] MEDS ORDERED: NALOXONE 0.4 MG/ML 1 ML VIAL IV PRN (10:51)
[2017-08-12] MEDS ORDERED: ONDANSETRON 4 MG/2 ML VIAL IVP PRN (10:57)
[2017-08-12] MEDS: DILTIAZEM 125 MG in SODIUM CHLORIDE 0.9% 100 ML IV ONE (11:25)
[2017-08-12] MEDS: 0.9% NACL WITH KCL 20 MEQ/L 1,000 ML IV SCH ×2 (12:00→20:41)
[2017-08-12] MEDS ORDERED: IPRATROPIUM-ALBUTEROL 3 ML NEB INHALATION PRN (16:22)
[2017-08-12] MEDS ORDERED: FLUTICASONE 50MCG/SPRAY NASAL 16GM EA NOSTRIL PRN (16:22)
[2017-08-12 16:41] VITALS: BMI 31.3
--- NOTE | 2017-08-12 17:46 | HP ---
HISTORY AND PHYSICAL DATE OF SERVICE: 08/12/2017. CHIEF COMPLAINT: Nausea, vomiting, and abdominal pain. BRIEF HISTORY: The patient is a 56-year-old male patient with history of schizophrenia, posttraumatic stress disorder, chronic alcohol dependence, and atrial fibrillation, peripheral vascular occlusive disease, sleep apnea, and PE, who presented to [facility] with the complaint of copious amount of vomiting, abdominal pain and nausea. The patient claimed that started about 24 hours ago, but abdomen was getting chronically more distended and painful to palpate. He did not have any bowel movement of diarrhea. When patient presented to the ED, he was found to be in atrial fibrillation with markedly elevated heart rate, which according to the transfer papers resolved spontaneously. PAST MEDICAL HISTORY: 1. Atrial fibrillation, chest pain angina. 2. Congestive heart failure. 3. COPD. 4. Hypertension. 5. Osteoarthritis. 6. Schizophrenia. 7. Posttraumatic stress disorder. 8. Alcohol dependence. 9. Peripheral vascular occlusive disease. 10.Sleep apnea. 11.History of PE. PAST SURGICAL HISTORY: Significant for tonsillectomy. SOCIAL HISTORY: Patient quit smoking a few years ago. No history of drug abuse or alcohol abuse. FAMILY HISTORY: Negative for history of hypertension, coronary artery disease or diabetes. MEDICATIONS: 1. Symbicort 2 puffs b.i.d. 2. Lasix 40 mg b.i.d. 3. DuoNeb nebulizer treatments q.4 hours p.r.n. 4. Metoprolol 50 mg t.i.d. 5. Diamox 250 mg daily. 6. Prednisone 10 mg as directed. 7. Prilosec 20 mg daily. 8. Invega 9 mg p.o. daily. 9. Xarelto 20 mg p.o. daily. 10.Zyrtec 10 mg daily. 11.Flonase nasal spray 2 sprays b.i.d. 12.Prilosec 40 mg p.o. daily. ALLERGIES: He is ALLERGIC TO COGENTIN, LAUNDRY DETERGENT, AND SOAP. REVIEW OF SYSTEMS: CONSTITUTIONAL: No fever or chills. HEENT: No hearing or vision loss. RESPIRATORY: No shortness of breath or chest congestion. CARDIOVASCULAR: Palpitations and racing heartbeat. GI/ABDOMEN: As per HPI. GENITOURINARY: No dysuria, no hematuria. EXTREMITIES/MUSCULOSKELETAL: No joint swelling or effusion. No musculoskeletal deformities. CENTRAL NERVOUS SYSTEM: No dizziness, lightheadedness, or weakness. Skin: No rashes or pigmentation. Rest of 14-point review of system is unremarkable. PHYSICAL EXAMINATION: Patient is awake, alert, oriented x3. VITAL SIGNS: Temperature 97.5, pulse 115, respiration 18, blood pressure 131/58, O2 saturation 98%. HEENT: Atraumatic, normocephalic. Pupils equal and reactive to light. Extraocular movements intact. Buccal mucosa is fair. NECK: Supple. No goiter, lymphadenopathy. JVD is negative. No carotid bruit heard. Lungs are clear to auscultate. No rales, rhonchi, wheezes. Heart is tachycardic, irregularly irregular and without any murmurs or gallop rhythm. ABDOMEN: Soft. It is distended. The bowel sounds are hypoactive. There is no guarding, rigidity. EXTREMITIES: No edema, clubbing, cyanosis. Patient moves all 4 extremities. NEUROLOGICAL EXAMINATION: Patient is cranial nerves 2-12 grossly intact. No gross motor or sensory deficit. PSYCHIATRIC EXAMINATION: Patient has normal affect and mood. Skin is warm, dry and intact. LABS AND X-RAY DATA: For the labs please see the transfer papers. CT of the abdomen shows small bowel obstruction. ASSESSMENT: 1. Atrial fibrillation with rapid ventricular response. 2. A small bowel obstruction. 3. Uncontrolled hypertension. PLAN: Admit the patient to telemetry. The patient is started on IV Cardizem drip due to persistently elevated heart rate. Will continue with that. Will consult the Cardiology for further recommendations and consult General Surgical service for small bowel obstruction. Keep patient n.p.o. Start patient on IV for fluids. Monitor electrolytes, renal function, strict I and O's. Monitor cardiac enzymes and EKG. Further recommendation once seen by Cardiology. Will recommend 2D echo. We will monitor patient closely for any alcohol related withdrawal and resume on home medications. MMODL / IJN: [id number] /
[2017-08-12] MEDS: SYMBICORT 80-4.5 MCG INHALER INHALATION SCH (20:01)
[2017-08-13] MEDS: 0.9% NACL WITH KCL 20 MEQ/L 1,000 ML IV SCH ×3 (02:55→21:04)
[2017-08-13 06:36] LABS: Basophils % (A) 0 %; Eosinophils # (A) 0.1 k/uL (0-0.7); Eosinophils % (A) 2 %; HCT 45.4 % (39.0-53.0); HGB 14.1 gm/dL (13.0-17.5); Hypochromasia Slight; Lymphocytes # (A) 0.8 k/uL (1.0-4.8); Lymphocytes % (A) 14 %; MCHC 31.1 g/dL (31.0-37.0); MCV 89.9 fL (80.0-100.0); Mean Platelet Volume 8.5; Monocytes # (A) 0.6 k/uL (0-1.0); Monocytes % (A) 11 %; Neutrophils # (A) 4.1 k/uL (1.3-7.7); Neutrophils % (A) 69 %; Platelet Count 126 k/uL (150-450); RBC 5.05 m/uL (4.30-5.90); RDW 14.7 % (11.5-15.5); WBC 5.9 k/uL (3.8-10.6)
[2017-08-13 06:50] LABS: Anion Gap 8 mmol/L; Blood Urea Nitrogen 12 mg/dL (9-20); Calcium 8.1 mg/dL (8.4-10.2); Carbon Dioxide 20 mmol/L (22-30); Chloride 111 mmol/L (98-107); Glucose 84 mg/dL (74-99); Potassium 4.4 mmol/L (3.5-5.1); Sodium 139 mmol/L (137-145)
[2017-08-13] MEDS: SYMBICORT 80-4.5 MCG INHALER INHALATION SCH ×2 (08:14→19:59)
[2017-08-13] MEDS: DILTIAZEM 125 MG in SODIUM CHLORIDE 0.9% 100 ML IV ONE (08:27)
--- NOTE | 2017-08-13 08:29 | P.GSCN ---
History of Present Illness Consult date: 08/13/17 Reason for Consult: Bowel obstruction History of present illness: Patient transferred to from [facility] with complaints of nausea vomiting and abdominal pain. He also had diarrhea. A CAT scan performed there showed possible small bowel obstruction. He feels better currently. Denies abdominal pain although he admits there is mild pain with palpation. Symptoms began about 2 days ago. One of his episodes of emesis was blackish in color. He never saw red blood. No repeat films of been obtained. CAT scan is being loaded onto [employer] system. He is somewhat hungry. He has a family member who is also sick with the flu like symptoms. Review of Systems The patient denies any acute changes in vision or hearing, no dysphagia or odynophagia, no chest pain or shortness of breath, no dysuria or hematuria, no headache, no runny nose, no rectal bleeding or melena, no unexplained weight loss Past Medical History Past Medical History: Atrial Fibrillation, Chest Pain / Angina, Heart Failure, COPD, Hypertension, Osteoarthritis (OA) Additional Past Medical History / Comment(s): noncompliant with medications. Schizophrenia all information gatherd from medical records from [facility] records and the patient. recalled info History of Any Multi-Drug Resistant Organisms: MRSA Year Discovered:: 07/07/14 MDRO Source:: LT LEG Past Surgical History: Tonsillectomy Past Anesthesia/Blood Transfusion Reactions: No Reported Reaction Past Psychological History: Anxiety, Schizophrenia Smoking Status: Current every day smoker Additional Past Alcohol Use History / Comment(s): Smiokes 6-7 cigars per day Past Drug Use History: None Reported - Past Family History Father Family Medical History: No Reported History Medications and Allergies Home Medications Medication Instructions Recorded Confirmed Type Paliperidone [Invega] 9 mg PO DAILY 01/15/15 08/12/17 History Rivaroxaban [Xarelto] 20 mg PO DAILY 01/15/15 08/12/17 History Ammonium Lactate Cream [Lac-Hydrin 1 applic TOPICAL BID 10/23/16 08/12/17 History 12% Cream] Cetirizine HCl [Zyrtec] 10 mg PO DAILY 10/23/16 08/12/17 History Fluticasone Nasal [facility] [Flonase 2 spray EA NOSTRIL DAILY PRN 10/23/16 08/12/17 History Nasal [facility]] Ipratropium-Albuterol Nebulize 3 ml INHALATION RT-Q4H PRN #0 10/31/16 08/12/17 Rx [Duoneb 0.5 mg-3 mg/3 ml Soln] ampul.neb Ipratropium-Albuterol Nebulize 3 ml INHALATION RT-QID ampul.neb 10/31/16 Rx [Duoneb 0.5 mg-3 mg/3 ml Soln] Diltiazem HCl [Diltiazem ER] 360 mg PO DAILY 08/12/17 08/12/17 History Fluticasone/Salmeterol [Advair 1 puff INHALATION RT-BID 08/12/17 08/12/17 History 250-50 Diskus] Furosemide [Lasix] 40 mg PO BID@0900,1700 08/12/17 08/12/17 History Furosemide [Lasix] 40 mg PO QAM 08/12/17 08/12/17 History Omeprazole 40 mg PO DAILY@2100 08/12/17 08/12/17 History Triamcinolone 0.1% Cream [Kenalog] 1 applicatio TOPICAL BID 08/12/17 08/12/17 History acetaZOLAMIDE [Diamox Sequels] 500 mg PO DAILY 08/12/17 08/12/17 History Allergies Allergy/AdvReac Type Severity Reaction Status Date / Time benztropine mesylate Allergy Rash/Hives Verified 08/12/17 11:21 [From [facility]] laundry detergent Allergy Mild Rash/Hives Uncoded 06/04/15 11:53 laundry soap Allergy Rash/Hives Uncoded 06/04/15 11:53 POPCORN Allergy Unknown Uncoded 08/12/17 11:21 Surgical - Exam Vital Signs Temp Pulse Resp BP Pulse Ox 97.6 F 115 H 18 151/85 98 08/12/17 08:23 08/12/17 08:23 08/12/17 08:23 08/12/17 08:23 08/12/17 08:23 Physical exam: General: Well-developed, well-nourished HEENT: Normocephalic, sclerae nonicteric Abdomen: Mild diffuse tenderness, nondistended Extremities: No edema Neuro: Alert and oriented Results - Labs 08/13/17 06:17 08/13/17 06:17 Abnormal Lab Results - Last 24 Hours (Table) 08/13/17 08/13/17 Range/Units 06:17 06:17 Plt Count 126 L (150-450) k/uL Lymphocytes # 0.8 L (1.0-4.8) k/uL Chloride 111 H (98-107) mmol/L Carbon Dioxide 20 L (22-30) mmol/L Calcium 8.1 L (8.4-10.2) mg/dL Diabetes panel 08/13/17 Range/Units 06:17 Sodium 139 (137-145) mmol/L Potassium 4.4 (3.5-5.1) mmol/L Chloride 111 H (98-107) mmol/L Carbon Dioxide 20 L (22-30) mmol/L BUN 12 (9-20) mg/dL Creatinine 0.78 (0.66-1.25) mg/dL Glucose 84 (74-99) mg/dL Calcium 8.1 L (8.4-10.2) mg/dL Calcium panel 08/13/17 Range/Units 06:17 Calcium 8.1 L (8.4-10.2) mg/dL Pituitary panel 08/13/17 Range/Units 06:17 Sodium 139 (137-145) mmol/L Potassium 4.4 (3.5-5.1) mmol/L Chloride 111 H (98-107) mmol/L Carbon Dioxide 20 L (22-30) mmol/L BUN 12 (9-20) mg/dL Creatinine 0.78 (0.66-1.25) mg/dL Glucose 84 (74-99) mg/dL Calcium 8.1 L (8.4-10.2) mg/dL Adrenal panel 08/13/17 Range/Units 06:17 Sodium 139 (137-145) mmol/L Potassium 4.4 (3.5-5.1) mmol/L Chloride 111 H (98-107) mmol/L Carbon Dioxide 20 L (22-30) mmol/L BUN 12 (9-20) mg/dL Creatinine 0.78 (0.66-1.25) mg/dL Glucose 84 (74-99) mg/dL Calcium 8.1 L (8.4-10.2) mg/dL Assessment and Plan (1) Small bowel obstruction Narrative/Plan: We'll review the CAT scan performed at [place]. We will order repeat abdominal x-rays today. Begin clear liquids pending those findings. Current Visit: Yes Status: Acute Code(s): K56.609 - UNSP INTESTNL OBST, UNSP TO PARTIAL VERSUS COMPLETE OBST SNOMED Code(s): 656904591
[2017-08-13] MEDS: PALIPERIDONE 3 MG TAB.ER.24 PO SCH (08:57)
[2017-08-13] MEDS: RIVAROXABAN 20 MG TAB PO SCH (08:57)
[2017-08-13] MEDS: acetaZOLAMIDE 250 MG TAB PO SCH (08:57)
--- NOTE | 2017-08-13 09:01 | XR ---
EXAMINATION TYPE: XR abdomen 2V , 3 VIEWS DATE OF EXAM ORDERED: 08/13/2017 HISTORY: Evaluate small bowel obstruction. COMPARISON: Previous CT scan of the abdomen dated 08/12/2017. FINDINGS: The lung bases are clear. Within the abdomen, there are mildly distended loops of small bowel in the midabdomen. There continue s to be some gas within the colon. No free air is seen. No unusual calcifications are seen. IMPRESSION: MILD ILEUS VERSUS EARLY SMALL BOWEL OBSTRUCTION.
[2017-08-13] MEDS: DILTIAZEM ORAL 60 MG TAB PO SCH ×3 (11:38→21:04)
--- NOTE | 2017-08-13 15:47 | PN ---
PROGRESS NOTE DATE OF SERVICE: 08/13/2017 Patient is seen at bedside in the room, claims abdominal pain is somewhat better. VITAL SIGNS: Temperature of 96.9, pulse 91, respiration 18, blood pressure 138/65, O2 saturation 95%. HEENT: Atraumatic, normocephalic. Pupils equal and reactive to light. Extraocular movements intact. Buccal mucosa is fair. Neck is supple. No lymphadenopathy. JVD is negative. No carotid bruit heard. Lungs are clear to auscultate. No rales, rhonchi, wheezes. Heart is regular rate and rhythm without any murmurs or gallop rhythm. Abdomen is soft. Remains slightly distended. Bowel sounds are positive. EXTREMITIES: No edema, clubbing or cyanosis. NEUROLOGICAL EXAMINATION: Cranial nerves 2-12 are grossly intact. No gross motor sensory deficit. LAB: CBC: White blood count of 5.9, hemoglobin 14.1, hematocrit 45.4, and platelet count of 126. Chemical profile: Sodium 139, potassium 4.4, chloride 111, bicarb 20, BUN 12, creatinine 0.7, glucose 84. ASSESSMENT: Small-bowel obstruction. Surgery is following. Awaiting for the CT scan report from [facility] to be uploaded for further recommendations. Patient is a is a cleared for clear liquid diet. Plan is to continue to follow clinically. The patient's chest x-ray continues to show small bowel obstruction. Cardiology is following the patient. Patient's heart rate is controlled, is off IV Cardizem. Cardiology has recommended 2D echo also and they have suggested to continue on current medications. Patient's blood pressure is improved. Will continue on current blood pressure medications and further recommendations after the echocardiogram is available. MMODL / IJN: [id number] /
[2017-08-13 16:23] LABS: Anion Gap 8 mmol/L; Blood Urea Nitrogen 11 mg/dL (9-20); Calcium 8.2 mg/dL (8.4-10.2); Carbon Dioxide 19 mmol/L (22-30); Chloride 112 mmol/L (98-107); Glucose 71 mg/dL (74-99); Magnesium 1.9 mg/dL (1.6-2.3); Potassium 4.1 mmol/L (3.5-5.1); Sodium 139 mmol/L (137-145)
[2017-08-13 17:31] LABS: Glucose,Whole Blood 67 mg/dL (75-99)
[2017-08-13 17:43] LABS: Glucose,Whole Blood 71 mg/dL (75-99)
--- NOTE | 2017-08-13 21:06 | CONS ---
CONSULTATION Julius Reyes is a 56-year-old gentleman with a known history of chronic atrial fibrillation, who has been admitted to the hospital basically because of what seems to be a small bowel obstruction. Apparently, he was seen. He has underlying schizophrenia that is stable. He also has some alcohol dependency. He has underlying sleep apnea. He has chronic atrial fibrillation and was transferred from [facility] because of possible small-bowel obstruction. After arrival, his heart rate was somewhat faster and he has been placed on a Cardizem drip. He is resting comfortably without symptoms. His rates are better. Denies chest pain. His abdominal pain has also improved and Dr. Parks has evaluated him and advised that he can be fed since he does not seem to have any significant obstruction at this time. He seems to be improving. This gentleman has known chronic atrial fibrillation, has been on rivaroxaban 20 mg daily and has had a decent rate control. At the time of my evaluation, he is resting comfortably without symptoms. PAST MEDICAL HISTORY: 1. Chronic atrial fibrillation. 2. Alcohol dependence. 3. History of schizophrenia. 4. Osteoarthritis. 5. Hypertension. 6. No documented evidence of any prior myocardial infarction or CVA. MEDICATIONS: At home include Xarelto 20 mg daily, inhalers, Lasix 40 mg daily, metoprolol tartrate 50 mg b.i.d., Diamox, prednisone, and he also takes other inhalers. ALLERGIES: HE IS ALLERGIC TO COGENTIN. EXAMINATION: Pressure is 130/70. Pulse rate is about 90, irregular. HEENT unremarkable. Fundus was not examined by me. NECK: Supple. There is no JVD. I do not hear a carotid bruit. Heart exam reveals S1, S2 heard normally with irregularity in rhythm. There is a short systolic murmur. Lungs revealed bilateral decent air entry. Abdomen is soft, nontender. Lower extremities reveal diminished pulses. No edema. Central nervous system is normal. EKG revealed atrial fibrillation with a controlled ventricular rate. The initial EKG revealed atrial fib with a rapid rate, but the repeat 1 suggests atrial fibrillation with a controlled ventricular rate, nonspecific ST changes were noted. IMPRESSION: 1. Chronic atrial fibrillation with some rate increase, but now rate control is better. 2. Small-bowel obstruction. 3. History of multiple other comorbid conditions. RECOMMENDATIONS: I am recommending that we discontinue the Cardizem drip and place him on oral Cardizem 60 mg p.o. t.i.d. and see if this optimizes rate control. Echo last May revealed normal systolic function without any other significant abnormalities. From a cardiac standpoint, no other intervention is necessary. He is already on Xarelto. Rate control is achieved. We will see the patient as needed during the hospitalization. Thank you very much for the consultation. TYRELL / ADRIANN: [id number] / SYLVAIN
[2017-08-13 21:08] LABS: Glucose,Whole Blood 81 mg/dL (75-99)
[2017-08-14] MEDS: 0.9% NACL WITH KCL 20 MEQ/L 1,000 ML IV SCH ×3 (02:01→21:17)
[2017-08-14 02:10] LABS: Glucose,Whole Blood 77 mg/dL (75-99)
[2017-08-14 06:02] LABS: Glucose,Whole Blood 76 mg/dL (75-99)
[2017-08-14 06:37] LABS: Anion Gap 11 mmol/L; Blood Urea Nitrogen 11 mg/dL (9-20); Calcium 8.9 mg/dL (8.4-10.2); Carbon Dioxide 19 mmol/L (22-30); Chloride 111 mmol/L (98-107); Glucose 82 mg/dL (74-99); Potassium 4.3 mmol/L (3.5-5.1); Sodium 141 mmol/L (137-145)
[2017-08-14 06:45] LABS: Basophils % (A) 0 %; Eosinophils # (A) 0.2 k/uL (0-0.7); Eosinophils % (A) 3 %; HCT 47.7 % (39.0-53.0); HGB 15.1 gm/dL (13.0-17.5); Lymphocytes # (A) 1.1 k/uL (1.0-4.8); Lymphocytes % (A) 17 %; MCHC 31.5 g/dL (31.0-37.0); MCV 88.7 fL (80.0-100.0); Mean Platelet Volume 8.7; Monocytes # (A) 0.5 k/uL (0-1.0); Monocytes % (A) 8 %; Neutrophils # (A) 4.3 k/uL (1.3-7.7); Neutrophils % (A) 67 %; Platelet Count 139 k/uL (150-450); RBC 5.38 m/uL (4.30-5.90); RDW 14.6 % (11.5-15.5); WBC 6.3 k/uL (3.8-10.6)
[2017-08-14] MEDS: SYMBICORT 80-4.5 MCG INHALER INHALATION SCH ×2 (07:27→19:43)
[2017-08-14] MEDS: acetaZOLAMIDE 250 MG TAB PO SCH (08:58)
[2017-08-14] MEDS: RIVAROXABAN 20 MG TAB PO SCH (08:58)
[2017-08-14] MEDS: PALIPERIDONE 3 MG TAB.ER.24 PO SCH (08:58)
[2017-08-14] MEDS: DILTIAZEM ORAL 60 MG TAB PO SCH ×3 (08:58→21:16)
--- NOTE | 2017-08-14 11:18 | ECHOF ---
Referral Reason:lv function MEASUREMENTS -------- HEIGHT: 182.9 cm WEIGHT: 108.0 kg BP: 130/90 RVIDd: 3.3 cm (< 3.3) IVSd: 1.0 cm (0.6 - 1.1) LVIDd: 4.0 cm (3.9 - 5.3) LVPWd: 0.9 cm (0.6 - 1.1) IVSs: 1.4 cm LVIDs: 2.6 cm LVPWs: 1.7 cm LAESV Index (A-L): 37.83 ml/m Ao Diam: 3.8 cm (2.0 - 3.7) AV Cusp: 2.0 cm (1.5 - 2.6) LA Diam: 3.6 cm (2.7 - 3.8) RAP: 5.00 mmHg RVSP: 10.17 mmHg FINDINGS -------- Atrial fibrillation. This was a technically good study. The left ventricular size is normal. Left ventricular wall thickness is normal. Overall left vent ricular systolic function is low-normal with, an EF between 50 - 55 %. The right ventricle is normal in size and function. LA is moderately dilated 34-39 ml/m2 The right atrium is normal in size. The aortic valve is trileaflet, and appears structurally normal. No aortic stenosis or regurgitation. The mitral valve is normal. Mild mitral regurgitation is present. Mild tricuspid regurgitation present. There is no evidence of pulmonary hypertension. The right v entricular systolic pressure, as measured by Doppler, is 10.17mmHg. There is no pulmonic regurgitation present. The aortic root size is normal. Normal inferior vena cava with normal inspiratory collapse consistent with estimated right atrial pre ssure of 5 mmHg. There is no pericardial effusion. CONCLUSIONS -------- 1. Atrial fibrillation. 2. This was a technically good study. 3. The left ventricular size is normal. 4. Left ventricular wall thickness is normal. 5. Overall left ventricular systolic function is low-normal with, an EF between 50 - 55 %. 6. LA is moderately dilated 34-39 ml/m2 7. The aortic valve is trileaflet, and appears structurally normal. No aortic stenosis or regurgitati on. 8. Mild mitral regurgitation is present. 9. Mild tricuspid regurgitation present. 10. There is no evidence of pulmonary hypertension. 11. There is no pulmonic regurgitation present. 12. The aortic root size is normal. 13. Normal inferior vena cava with normal inspiratory collapse consistent with estimated right atrial pressure of 5 mmHg. 14. There is no pericardial effusion. TIN FLOPPER: Inga Marquez RDCS
[2017-08-14 11:35] LABS: Glucose,Whole Blood 99 mg/dL (75-99)
[2017-08-14] MEDS ORDERED: METOPROLOL TARTRATE 25 MG TAB PO SCH (11:45)
[2017-08-14] MEDS: METOPROLOL TARTRATE 50 MG TAB PO SCH ×2 (11:49→21:16)
--- NOTE | 2017-08-14 15:12 | P.PN ---
<Ericka Gravesariel Romano - Last Filed: 08/14/17 14:54> Subjective Progress Note Date: 08/14/17 56-year-old male seen and examined. Currently resting in bed. Patient states the nausea vomiting and abdominal pain have significantly improved compared to admission. Patient has mild abdominal discomfort with palpitation reports that he has been up ambulating in the ivey passing gas no stool. Reports tolerating a diet. Afebrile white count 6.3 abdominal x-ray obtained on admission show mild ileus versus early small bowel obstruction Objective - Vital Signs Vital signs: Vital Signs Temp 97.7 F 08/14/17 08:00 Pulse 125 H 08/14/17 11:52 Resp 16 08/14/17 11:52 BP 121/66 08/14/17 11:52 Pulse Ox 96 08/14/17 11:52 Intake & Output 08/13/17 08/14/17 08/14/17 18:59 06:59 18:59 Intake Total 1605.167 375 Output Total 350 Balance 1255.167 375 Weight 108.4 kg Intake: IV 375 0.9% NaCl with KCl 20 Meq 375 /l 1,000 ml @ 125 mls/hr IV .Q8H [facility] Rx#:[id number] Intake, IV Titration 1605.167 Amount 0.9% NaCl with KCl 20 Meq 1500 /l 1,000 ml @ 125 mls/hr IV .Q8H [facility] Rx#:[id number] Diltiazem 125 mg In 105.167 Sodium Chloride 0.9% 100 ml @ 5 MG/HR 5 mls/hr IV .Q24H [facility] Rx#:[id number] Output: Urine 350 Other: Voiding Method Toilet Toilet Toilet # Voids 1 1 1 - Exam Physical exam Pleasant 56-year-old male sitting up in bed appearing in no acute distress Lungs adequate air movement bilaterally no shortness of breath no cough Heart S1-S2 audible and regular Abdomen obese soft not distended mild tenderness to the bilateral lower quadrant no nausea or vomiting passing gas no stool urinating no difficulty tolerating a clear liquid diet Extremities no edema noted bilaterally - Labs CBC & Chem 7: 08/14/17 05:45 08/14/17 05:45 Labs: Abnormal Lab Results - Last 24 Hours (Table) 08/13/17 08/13/17 08/13/17 Range/Units 15:59 17:16 17:40 Plt Count (150-450) k/uL Chloride 112 H (98-107) mmol/L Carbon Dioxide 19 L (22-30) mmol/L Glucose 71 L (74-99) mg/dL POC Glucose (mg/dL) 67 L 71 L (75-99) mg/dL Calcium 8.2 L (8.4-10.2) mg/dL 08/14/17 08/14/17 Range/Units 05:45 05:45 Plt Count 139 L (150-450) k/uL Chloride 111 H (98-107) mmol/L Carbon Dioxide 19 L (22-30) mmol/L Glucose (74-99) mg/dL POC Glucose (mg/dL) (75-99) mg/dL Calcium (8.4-10.2) mg/dL Assessment and Plan Assessment: Impression Present on admission abdominal pain with nausea vomiting possible due to small bowel obstruction or early ileus Presented from [facility] with complaint of nausea vomiting abdominal pain diarrhea CAT scan performed at the facility showed possible small bowel obstruction History of schizophrenia Chronic atrial fibrillation on Xarelto controlled ventricular response Plan IV fluid for hydration Pain control Home meds as appropriate Continue clear liquid diet and advance as tolerated Further surgical recommendations will follow with you The above impression and plan of care have been discussed and directed by signing physician. Teresita Graves nurse practitioner acting as scribe for signing physician. <Deon Parks - Last Filed: 08/14/17 20:59> Objective - Vital Signs Vital signs: Vital Signs Temp 97 F L 08/14/17 20:00 Pulse 71 08/14/17 20:00 Resp 18 08/14/17 20:00 BP 113/71 08/14/17 20:00 Pulse Ox 96 08/14/17 20:00 Intake & Output 08/14/17 08/14/17 08/15/17 06:59 18:59 06:59 Intake Total 375 480 Balance 375 480 Weight 108.4 kg Intake: IV 375 0.9% NaCl with KCl 20 Meq 375 /l 1,000 ml @ 125 mls/hr IV .Q8H [facility] Rx#:[id number] Oral 480 Other: Voiding Method Toilet Toilet Toilet # Voids 1 1 # Bowel Movements 1 - Labs CBC & Chem 7: 08/14/17 05:45 08/14/17 05:45 Labs: Abnormal Lab Results - Last 24 Hours (Table) 08/14/17 08/14/17 Range/Units 05:45 05:45 Plt Count 139 L (150-450) k/uL Chloride 111 H (98-107) mmol/L Carbon Dioxide 19 L (22-30) mmol/L Assessment and Plan Assessment: Patient feels better today. He is currently tolerating clear liquid diet. He had a small bowel movement earlier today. No nausea or vomiting. CAT scan from outside institution was reviewed and shows dilated small bowel loops that are consistent with either ileus or PSBO. Repeat x-rays here are improved. We' ll continue to advance diet as tolerated. Will follow with you. (1) Small bowel obstruction Current Visit: Yes Status: Acute Code(s): K56.609 - UNSP INTESTNL OBST, UNSP TO PARTIAL VERSUS COMPLETE OBST SNOMED Code(s): 717726806
--- NOTE | 2017-08-14 17:38 | P.PN ---
Subjective Progress Note Date: 08/14/17 Progress note being dictated for Dr. Omalley. Interval history: This Is a 56-year-old gentleman admitted with small bowel obstruction. Leigha CT reportedly mild ileus versus early small bowel obstruction. Maintained on IV fluid hydration ,Nausea vomiting subsided, passing flatus, no bowel movement. clear liquid diet initiated as per surgery, tolerated well. Afebrile. Telemetry A. fib with controlled ventricular rate, heart rates 80s to 90s, during the night heart rate jumped up to the 150s. Echo reporting preserved LV function, EF 50-55%. Denies any chest pain palpitations or increasing shortness of breath. Objective - Vital Signs Vital signs: Vital Signs Temp 97.4 F L 08/14/17 15:43 Pulse 115 H 08/14/17 15:43 Resp 17 08/14/17 15:43 BP 105/60 08/14/17 15:43 Pulse Ox 97 08/14/17 15:43 Intake & Output 08/13/17 08/14/17 08/14/17 18:59 06:59 18:59 Intake Total 1605.167 375 Output Total 350 Balance 1255.167 375 Weight 108.4 kg Intake: IV 375 0.9% NaCl with KCl 20 Meq 375 /l 1,000 ml @ 125 mls/hr IV .Q8H [facility] Rx#:[id number] Intake, IV Titration 1605.167 Amount 0.9% NaCl with KCl 20 Meq 1500 /l 1,000 ml @ 125 mls/hr IV .Q8H [facility] Rx#:[id number] Diltiazem 125 mg In 105.167 Sodium Chloride 0.9% 100 ml @ 5 MG/HR 5 mls/hr IV .Q24H [facility] Rx#:[id number] Output: Urine 350 Other: Voiding Method Toilet Toilet Toilet # Voids 1 1 1 - Exam PHYSICAL EXAM: VITAL SIGNS: As above GENERAL: Sitting up in bed, no acute distress HEENT: Conjunctivae normal. eyes normal. Oral mucosa moist NECK: No JVD. No thyroid enlargement. No LNs CARDIOVASCULAR: S1, S2 muffled. No murmur RESPIRATION: Breath sounds diminished in the bases. No rhonchi or crackles. No bronchial breathing. ABDOMEN: Soft, nontender . No guarding. no masses palpable. Hypoactive Bowel sounds heard. LEGS: No edema. no swelling PSYCHIATRY: Alert and oriented -3, mood and affect normal. NERVOUS SYSTEM: Cranial N 2-12 grossly normal. Moves all 4 limbs. Diffuse weakness No focal deficits. Skin: no ulcer no rash Joints: No active swelling. No inflammation. Lymphatic system. No LN neck axilla or groin. - Labs CBC & Chem 7: 08/14/17 05:45 08/14/17 05:45 Labs: Abnormal Lab Results - Last 24 Hours (Table) 08/13/17 08/13/17 08/14/17 Range/Units 17:16 17:40 05:45 Plt Count 139 L (150-450) k/uL Chloride (98-107) mmol/L Carbon Dioxide (22-30) mmol/L POC Glucose (mg/dL) 67 L 71 L (75-99) mg/dL 08/14/17 Range/Units 05:45 Plt Count (150-450) k/uL Chloride 111 H (98-107) mmol/L Carbon Dioxide 19 L (22-30) mmol/L POC Glucose (mg/dL) (75-99) mg/dL Assessment and Plan Assessment: 1. Small bowel obstruction, possible early ileus 2. Chronic A. fib with RVR, ventricular rate currently controlled. 3. Schizophrenia Plan: Continue on current medication regime ,monitoring and symptomatic treatment. Maintain IV fluid hydration. Diet advancement as per surgery. Anticoagulation with Xarelto. Further recommendations to follow. The impression and plan of care has been dictated as directed. : I performed a history and examination of this patient, discussed the same with the dictator. I agree with the dictator's note ,documented as a scribe. Any additional findings or plans will be noted.
--- NOTE | 2017-08-14 20:49 | PN ---
PROGRESS NOTE This gentleman has chronic atrial fibrillation, small bowel obstruction, doing well. Rate control is fairly decent. He had a bowel movement. A small bowel obstruction is improving. Vitals are stable. Rate is in the 90s. S1, S2 heard normally. Regular rate and rhythm noted. Lungs reveal improved air entry. Abdomen is softer. Bowel sounds are audible. Rest of physical examination is unchanged. Plan is to continue anticoagulation and rate control, and I will see the patient as needed. Will increase the beta odalis to optimize rate control. Discussed with the patient that if there is any issue, I will re-evaluate him. MMODL / IJN: [id number] /
[2017-08-14] MEDS ORDERED: METOPROLOL TARTRATE 50 MG TAB PO SCH (21:00)
[2017-08-15 00:40] VITALS: RESP 16
[2017-08-15] MEDS: 0.9% NACL WITH KCL 20 MEQ/L 1,000 ML IV SCH ×2 (05:04→11:27)
[2017-08-15 06:55] LABS: Basophils % (A) 0 %; Eosinophils # (A) 0.1 k/uL (0-0.7); Eosinophils % (A) 2 %; HCT 44.2 % (39.0-53.0); HGB 14.2 gm/dL (13.0-17.5); Lymphocytes # (A) 0.9 k/uL (1.0-4.8); Lymphocytes % (A) 15 %; MCH 27.9 pg (25.0-35.0); MCV 87.3 fL (80.0-100.0); Mean Platelet Volume 8.5; Monocytes # (A) 0.5 k/uL (0-1.0); Monocytes % (A) 9 %; Neutrophils # (A) 4.3 k/uL (1.3-7.7); Neutrophils % (A) 70 %; Platelet Count 146 k/uL (150-450); RBC 5.06 m/uL (4.30-5.90); RDW 14.8 % (11.5-15.5); WBC 6.1 k/uL (3.8-10.6)
[2017-08-15 06:56] LABS: Anion Gap 10 mmol/L; Blood Urea Nitrogen 10 mg/dL (9-20); Calcium 8.6 mg/dL (8.4-10.2); Carbon Dioxide 20 mmol/L (22-30); Chloride 110 mmol/L (98-107); Glucose 98 mg/dL (74-99); Potassium 4.2 mmol/L (3.5-5.1); Sodium 140 mmol/L (137-145)
[2017-08-15] MEDS: SYMBICORT 80-4.5 MCG INHALER INHALATION SCH (08:44)
[2017-08-15] MEDS: acetaZOLAMIDE 250 MG TAB PO SCH (08:49)
[2017-08-15] MEDS: RIVAROXABAN 20 MG TAB PO SCH (08:50)
[2017-08-15] MEDS: METOPROLOL TARTRATE 50 MG TAB PO SCH (08:50)
[2017-08-15] MEDS: PALIPERIDONE 3 MG TAB.ER.24 PO SCH (08:50)
[2017-08-15] MEDS: DILTIAZEM ORAL 60 MG TAB PO SCH ×2 (08:50→15:17)
[2017-08-15 08:54] VITALS: TEMP 97.5
[2017-08-15 12:17] LABS: Glucose,Whole Blood 106 mg/dL (75-99)
--- NOTE | 2017-08-15 12:48 | P.PN ---
Subjective Progress Note Date: 08/15/17 Principal diagnosis: Small bowel obstruction Patient doing well today. Tolerating full liquids. He had a small bowel movement. No nausea or vomiting. No abdominal pain. Objective - Vital Signs Vital signs: Vital Signs Temp 97.5 F L 08/15/17 08:40 Pulse 82 08/15/17 11:20 Resp 16 08/15/17 11:20 BP 113/70 08/15/17 11:20 Pulse Ox 95 08/15/17 11:20 Intake & Output 08/14/17 08/15/17 08/15/17 18:59 06:59 18:59 Intake Total 480 2000 240 Output Total 200 Balance 480 2000 40 Weight 110.4 kg Intake: IV 2000 0.9% NaCl with KCl 20 Meq 2000 /l 1,000 ml @ 125 mls/hr IV .Q8H [facility] Rx#:[id number] Oral 480 240 Output: Urine 200 Other: Voiding Method Toilet Toilet Toilet # Voids 1 1 # Bowel Movements 1 - Exam Abdomen: Soft, nontender, nondistended - Labs CBC & Chem 7: 08/15/17 06:15 08/15/17 06:15 Labs: Abnormal Lab Results - Last 24 Hours (Table) 08/15/17 08/15/17 08/15/17 Range/Units 06:15 06:15 11:24 Plt Count 146 L (150-450) k/uL Lymphocytes # 0.9 L (1.0-4.8) k/uL Chloride 110 H (98-107) mmol/L Carbon Dioxide 20 L (22-30) mmol/L POC Glucose (mg/dL) 106 H (75-99) mg/dL Assessment and Plan (1) Small bowel obstruction Narrative/Plan: Continue advancing diet. Suspect likely viral enteritis as the etiology for the patient's symptoms. Partial small bowel obstruction that is resolved spontaneously is also a possibility. Doing better at this time thankfully. We' ll sign off. Please contact if needed. Current Visit: Yes Status: Acute Code(s): K56.609 - UNSP INTESTNL OBST, UNSP TO PARTIAL VERSUS COMPLETE OBST SNOMED Code(s): 205328282
[2017-08-15 15:17] VITALS: BP 134/96; PULSE 88
[2017-08-15 17:26] LABS: Glucose,Whole Blood 88 mg/dL (75-99)
--- NOTE | 2017-08-16 00:41 | DS ---
DISCHARGE SUMMARY FINAL DIAGNOSES: 1. Small bowel obstruction, possible early ileus. 2. Chronic atrial fibrillation with ventricular rate control. 3. Schizophrenia. DISCHARGE DISPOSITION: The patient will be discharged in stable condition with guarded prognosis. HISTORY OF PRESENT ILLNESS: This is a 56-year-old gentleman with past medical history of small bowel obstruction. The patient treated symptomatically and the patient improved significantly. Dr. Parks saw the patient. On exam, vitals are stable. CARDIOVASCULAR: S1 and S2. ABDOMEN: Soft, mild diffuse distention. Nontender. No mass palpable. DISCHARGE ADVICE: 1. Diet is cardiac. 2. Activity limited until followup. 3. Followup with Dr. Alma Moffett in 2-3 days. 4. Followup with Dr. Radha Solares and Dr. Parks as recommended. MEDICATIONS: 1. Diamox 500 mg p.o. daily. 2. Lac-Hydrin topically. 3. Zyrtec 10 mg daily. 4. Cardizem 60 mg p.o. t.i.d. 5. Fluticasone nasal 2 sprays in each nose. 6. Advair 1 puff b.i.d. 7. Lasix 40 mg q.a.m. 8. Albuterol and Atrovent updraft q.i.d. and p.r.n. 9. Lopressor 50 mg p.o. b.i.d. 10.Omeprazole 40 mg p.o. daily. 11.Invega 9 mg p.o. daily. 12.Xarelto 20 mg p.o. daily. 13.Triamcinolone 0.1% 1 application topically. The patient will be discharged in stable condition with a guarded prognosis. MMODL / IJN: [id number] /
== END 2017-08-15 17:55 | disposition home or self-care (01) | DRG 390 ==
LOC: EC 08:18 → 6SEL 10:51
PROVIDERS: ADMIT Internal Medicine; ATTEND Internal Medicine
DX: K56.690 Other partial intestinal obstruction (principal); I11.0 Hypertensive heart disease with heart failure; F20.9 Schizophrenia, unspecified; I50.9 Heart failure, unspecified; I48.2 Chronic atrial fibrillation; I20.9 Angina pectoris, unspecified; J44.9 Chronic obstructive pulmonary disease, unspecified; G47.30 Sleep apnea, unspecified; M19.90 Unspecified osteoarthritis, unspecified site; F43.10 Post-traumatic stress disorder, unspecified; F10.20 Alcohol dependence, uncomplicated; A08.4 Viral intestinal infection, unspecified; F41.9 Anxiety disorder, unspecified; I73.9 Peripheral vascular disease, unspecified; Z86.711 Personal history of pulmonary embolism; Z88.8 Allergy status to other drugs, medicaments and biological substances; Z79.52 Long term (current) use of systemic steroids; Z79.899 Other long term (current) drug therapy; Z91.048 Other nonmedicinal substance allergy status; Z87.891 Personal history of nicotine dependence; Z91.14 Patient's other noncompliance with medication regimen; Z22.322 Carrier or suspected carrier of Methicillin resistant Staphylococcus aureus; Z90.89 Acquired absence of other organs; Z79.01 Long term (current) use of anticoagulants; Z91.018 Allergy to other foods; Z87.19 Personal history of other diseases of the digestive system
CPT/HCPCS: 74019; 80048; 83735; 85025; 93306; 96365; 96366; 96368; 99285